=== PATIENT | male | born 1965 | race Caucasian/White ===

== ENCOUNTER 2018-03-06 08:35 | Inpatient (IN) | payer OTHER ==
--- NOTE | 2018-03-06 09:28 | ED ---
Seizure - HPI Summary HPI Summary: Patient is a 52-year-old male with a history of grand mal seizures taking carbamazepine 4 times daily presenting to the ED with . states he has been having focal seizures every 2 minutes with a rest period of about 1-1/2 minutes 3 hours ago. This has never happened. Per patient, the seizures have somewhat of a warning and has some impaired awareness which presents as knowing others are in his environment, but is unable to see them correctly or communicate in any way. His behaviors are repetitive motions including facial grimacing, gesturing, lips backing and repeating words. He also endorses some fear and is often stating "help me." After seizure activity, he is able to communicate effectively and understands that he had just had a seizure. 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 He has had these focal seizures with impaired awareness in his sleep intermittently per , but never while he is awake. He remains on the same dose of his carbamazepine which is 100 mg in the morning, 200 mg at noon, 100 mg in the evening, 300 mg at bedtime. He believes he sees Dr. Rivera but has not seen him in several years. - History Of Current Complaint Chief Complaint: EDSeizure Time Seen by Provider: 03/06/18 08:58 Hx Obtained From: Patient Onset/Duration: Sudden Onset Severity Of Seizure: Self-Limited Location Of Seizure: Focal Movement(s) Character: Partial (Specify) Aggravating Factor(s): Nothing Alleviating Factor(s): Spontaneous Resolution Associated Signs And Symptoms: Negative Related History: Medication Compliant - Risk Factors SAH Risk Factors: Negative Meningitis Risk Factors: Negative SDH Risk Factor: Male, Seizures - Allergies/Home Medications Allergies/Adverse Reactions: Allergies Allergy/AdvReac Type Severity Reaction Status Date / Time divalproex sodium Allergy Rash Verified 03/06/18 08:44 [From Depakote] phenobarbital Allergy Unknown Verified 03/06/18 08:44 Reaction Details phenytoin [From Dilantin] Allergy Unknown Verified 03/06/18 08:44 Reaction Details PMH/Surg Hx/FS Hx/Imm Hx Previously Healthy: Yes Endocrine/Hematology History: Denies: Hx Diabetes, Hx Thyroid Disease Cardiovascular History: Denies: Hx Hypertension, Hx Pacemaker/ICD Respiratory History: Denies: Hx Asthma, Hx Chronic Obstructive Pulmonary Disease (COPD) Sensory History: Denies: Hx Hearing Aid Neurological History: Reports: Hx Seizures Psychiatric History: Denies: Hx Panic Disorder - Cancer History Cancer Type, Location and Year: SKIN CA - Surgical History Surgery Procedure, Year, and Place: NO NEURO SURGERY - Immunization History Hx Pertussis Vaccination: No Immunizations Up to Date: Unable to Obtain/Confirm Infectious Disease History: Denies: Hx Hepatitis, Hx Human Immunodeficiency Virus (HIV) - Social History Occupation: Employed Full-time Lives: With Family Alcohol Use: None Hx Substance Use: No Substance Use Type: Reports: None Smoking Status (MU): Never Smoked Tobacco Review of Systems Constitutional: Negative Negative: Fever, Chills, Fatigue, Skin Diaphoresis Eyes: Negative Cardiovascular: Negative Respiratory: Negative Positive: no symptoms reported, see HPI Musculoskeletal: Negative Neurological: Other - seizure activity Psychological: Normal All Other Systems Reviewed And Are Negative: Yes Physical Exam Triage Information Reviewed: Yes Vital Signs On Initial Exam: Initial Vitals Pulse Pulse Ox 73 97 03/06/18 08:46 03/06/18 08:46 Vital Signs Reviewed: Yes Appearance: Positive: Well-Appearing - seizure activity Skin: Positive: Warm, Skin Color Reflects Adequate Perfusion Eyes: Positive: Normal, EOMI, COSMO Neck: Positive: Nontender Respiratory/Lung Sounds: Positive: Clear to Auscultation Cardiovascular: Positive: Normal Neurological: Positive: Sensory/Motor Intact, Alert, Oriented to Person Place, Time, Speech Normal, Other - seizure activity - intermittent Psychiatric: Positive: Normal, Affect/Mood Appropriate AVPU Assessment: Alert Diagnostics - Vital Signs Vital Signs Pulse BP Pulse Ox 03/06/18 08:50 180/101 03/06/18 08:46 73 97 - Laboratory Result Diagrams: 03/06/18 09:29 03/06/18 09:29 Lab Statement: Any lab studies that have been ordered have been reviewed, and results considered in the medical decision making process. Course/Dx - Course Course Of Treatment: On arrival, focal seizure with impaired awareness is visualized. Dr. Perkins called immediately for an evaluation, as this is new seizure symptoms. He is able to come to bedside immediately. EEG obtained with video. CT brain obtained. Discussed case with Dr. Levin who accepts patient to ICU. Dr. Rivera and Dr. Perkins both at bedside. Labs including carbamazepine obtained. Carbamazepine level 12.5. IV obtained. 1000 Keppra given and 4 mg Ativan given per Dr. Perkins. Labs are otherwise stable. He is accepted into the ICU. - Diagnoses Differential Diagnosis/HQI/PQRI: Positive: Known Seizure Disorder Provider Diagnoses: Status epilepticus - Physician Notifications Discussed Care of Patient With: Bernard Perkins - to see patient in the ED Instructed by Provider To: Admit As Inpatient - ICU/ Dr. Levin accepts Admit/Transition Orders Completed By ED Provider: No - Critical Care Time Critical Care Time: 30-74 min Discharge - Sign-Out/Discharge Documenting (check all that apply): Discharge/Admit/Transfer - Discharge Plan Condition: Fair Disposition: ADMITTED TO [facility] Referrals: Olivia Anguiano MD [Primary Care Provider] - - Billing Disposition and Condition Condition: FAIR Disposition: [facility] [place]
[2018-03-06 09:41] LABS: ABS Basophils 0.1 10^3/ul (0-0.2); ABS Eosinophils 0.4 10^3/ul (0-0.6); ABS Monocytes 0.5 10^3/ul (0-0.8); ABS Neutrophils 3.6 10^3/ul (1.5-7.7); ABS Nucleated RBC 0 10^3/ul; Eosinophil % 6.2 % (0-6); Hematocrit 39 % (42-52); Lymphocyte % 30.3 % (25-47); Mean Corpuscular HGB Conc 36 g/dl (31-36); Mean Corpuscular Hemoglobin 32 pg (27-31); Mean Corpuscular Volume 90 fL (80-94); Mean Platelet Volume 7.1 um3 (7.4-10.4); Nucleated Red Blood Cells % 0; Platelet Count 172 10^3/ul (150-450); Red Blood Count 4.36 10^6/ul (4.0-5.4); Red Cell Distribution Width 14 % (10.5-15); White Blood Count 6.7 10^3/ul (3.5-10.8)
[2018-03-06] MEDS ORDERED: LORazepam INJ* 2 MG/ML 1 ML VIAL IV PUSH ONE ×2 (09:44→09:55)
[2018-03-06] MEDS ORDERED: levETIRAcetam IV* 1,000 MG in NS 0.9% 100 ML* 100 ML IVPB ONE (09:55)
[2018-03-06] MEDS ORDERED: LORazepam INJ* 2 MG/ML 1 ML VIAL ONE (09:56)
[2018-03-06 10:02] LABS: EGFR Non-African American 82.9 (>60)
[2018-03-06 11:08] LABS: Urine Appearance Clear; Urine Blood Negative (Negative); Urine Color Yellow; Urine Ketones Negative (Negative); Urine Protein Negative (Negative); Urine Urobilinogen Negative (Negative)
--- NOTE | 2018-03-06 11:49 | RAD ---
INDICATION: Seizure activity COMPARISON: Similar CT of the brain February 05, 2014 TECHNIQUE: Contiguous axial sections of the brain were obtained from the skull base to the vertex without contrast. FINDINGS: The ventricles, cisterns and sulci are within normal limits. There is stable encephalomalacia involving the right frontal lobe not significant change since the previous CT of the brain. Elsewhere the mancia-white matter differentiation is adequately maintained and there is no sulcal effacement. No significant focal abnormality or mass effect is present. There is no evidence for intracranial hemorrhage. No significant focal osseous abnormality is present. There is mild mucosal thickening of the bilateral ethmoid air cells. The mastoid air cells are well aerated bilaterally. IMPRESSION: 1. Stable encephalomalacia involving the right frontal lobe not significant change since the sixth 1913 CT examination. 2. Mild paranasal sinus mucosal disease.
[2018-03-06] MEDS ORDERED: Temazepam CAP* 15 MG PO PRN ×2 (12:13→12:50)
--- NOTE | 2018-03-06 12:46 | HP ---
H&P (Free Text) History and Physical: History and Physical - Critical Care Limitations in history/physical: post benzodiazepine, sedated HPI: 52y M w/pmhx of epilepsy on carbamezapine; comes to ER with , brought in for abnormal facial movements. She states he gets facial grimacing movements at nighttime. But today for 3 hours he was having more facial and extremity movements intermittently. In ER had frequent facial grimacing, lip smacking as documented by ER and neurology. Neuro consult called and this was suspected to be on going partial status epilepticus of partialseizures. Carbamezapine dosing checked, compliant but has not seen neurologist for years. Level was 12. Given keppra 1000mg loading. Ativan IV push for seizure. He is now in ICU, sedated, arousable. HR 50s, BP 160s, sats mid 90s. at bedside. ROS: unable to obtain due to mental status change/sedated PMHx: epilepsy PSHx: none Family History: none significant Social History: Alcohol-none, Smoking-none, Drug use-none; Job-employed; family- Allergies: Allergies Allergy/AdvReac Type Severity Reaction Status Date / Time divalproex sodium Allergy Rash Verified 03/06/18 08:44 [From Depakote] phenobarbital Allergy Unknown Verified 03/06/18 08:44 Reaction Details phenytoin [From Dilantin] Allergy Unknown Verified 03/06/18 08:44 Reaction Details Home Medications: Polyethylene Glycol 3350* [Miralax*] 17 gm PO DAILY PRN 07/19/16 [History Confirmed 03/06/18] carBAMazepine TAB(*) [TEGretol TAB(*)] 200 mg PO .NOON 08/30/16 [History Confirmed 03/06/18] clonazePAM TAB(*) [KlonoPIN TAB(*)] 2 mg PO BEDTIME 08/30/16 [History Confirmed 03/06/18] Nicotine PATCH 14 MG/24 HR* 14 mg TRANSDERM DAILY 09/03/16 [History Confirmed ] Omeprazole CAP* [Prilosec CAP* 20 MG] 40 mg PO DAILY 03/06/18 [History Confirmed 03/06/18] Ranitidine TAB (NF) [Zantac TAB (NF)] 150 - 300 mg PO DAILY 03/06/18 [History Confirmed 03/06/18] Temazepam CAP* [Restoril CAP*] 15 - 30 mg PO BEDTIME 03/06/18 [History Confirmed 03/06/18] carBAMazepine TAB(*) [TEGretol TAB(*)] 100 mg PO .QAM AND 1800 03/06/18 [ History Confirmed 03/06/18] carBAMazepine TAB(*) [TEGretol TAB(*)] 300 mg PO BEDTIME 03/06/18 [History Confirmed 03/06/18] Tele: sinus simone Vitals: Vital Signs Temp 97.8 F 03/06/18 10:42 Pulse 51 03/06/18 12:15 Resp 14 03/06/18 12:15 BP 120/71 03/06/18 12:15 Pulse Ox 95 03/06/18 12:15 Intake & Output 03/05/18 03/06/18 03/06/18 18:59 06:59 18:59 Intake Total 110 Balance 110 Weight 126 lb 1.671 oz Intake: IV Fluids 110 O2/Vent: RA Infusions: heplock Current Medications: Carbamazepine (Tegretol Tab(*)) 100 mg PO .QAM AND 1800 PAULA Carbamazepine (Tegretol Tab(*)) 200 mg PO 1200 PAULA Carbamazepine (Tegretol Tab(*)) 300 mg PO BEDTIME PAULA Levetiracetam (Keppra Iv Premix*) 500 mg in 100 mls @ 400 mls/hr IV Q12H PAULA Omeprazole (Prilosec Cap*) 40 mg PO DAILY PAULA Temazepam (Restoril Cap*) 15 - 30 mg PO BEDTIME PRN PRN Reason: INSOMNIA Stop: 03/11/18 12:12 Physical Exam: General: sedated, barely arousable, comfortable, breathing, no distress Head: normocephalic, atraumatic HEENT: no pallor, no icterus, moist mucous membranes Neck: soft, supple, no jvd, no stridor CVS: simone, regular, no murmur Resp: bilateral air entry, no rhales, no wheeze, no rhonchi, no acc muscle use Abdomen: soft, nontender, nondistended, bowel sounds present Ext: pulses+, warm, no edema Skin: intact, no breakdown, no dryness Neuro: sedated, pupils reactive, no apparent seizure noted. limited exam due to sedation. Labs: Laboratory Results - last 24 hr 03/06/18 03/06/18 03/06/18 09:29 09:29 09:30 WBC 6.7 RBC 4.36 Hgb 14.0 Hct 39 L MCV 90 MCH 32 H MCHC 36 RDW 14 Plt Count 172 MPV 7.1 L Neut % (Auto) 54.5 Lymph % (Auto) 30.3 [place] % (Auto) 8.0 H Eos % (Auto) 6.2 H Baso % (Auto) 1.0 Absolute Neuts (auto) 3.6 Absolute Lymphs (auto) 2.0 Absolute Monos (auto) 0.5 Absolute Eos (auto) 0.4 Absolute Basos (auto) 0.1 Absolute Nucleated RBC 0 Nucleated RBC % 0 Sodium 139 Potassium 3.9 Chloride 103 Carbon Dioxide 29 Anion Gap 7 BUN 10 Creatinine 0.95 Est GFR ( Amer) 106.7 Est GFR (Non-Af Amer) 82.9 BUN/Creatinine Ratio 10.5 Glucose 93 Lactic Acid 1.4 Calcium 9.4 Magnesium 2.0 Total Bilirubin 0.40 AST 24 ALT 19 Alkaline Phosphatase 143 H Total Protein 7.7 Albumin 4.5 Globulin 3.2 Albumin/Globulin Ratio 1.4 Urine Color Urine Appearance Urine pH Ur Specific Fifield Urine Protein Urine Ketones Urine Blood Urine Nitrate Urine Bilirubin Urine Urobilinogen Ur Leukocyte Esterase Urine Glucose Carbamazepine 12.5 H 03/06/18 10:50 WBC RBC Hgb Hct MCV MCH MCHC RDW Plt Count MPV Neut % (Auto) Lymph % (Auto) [place] % (Auto) Eos % (Auto) Baso % (Auto) Absolute Neuts (auto) Absolute Lymphs (auto) Absolute Monos (auto) Absolute Eos (auto) Absolute Basos (auto) Absolute Nucleated RBC Nucleated RBC % Sodium Potassium Chloride Carbon Dioxide Anion Gap BUN Creatinine Est GFR ( Amer) Est GFR (Non-Af Amer) BUN/Creatinine Ratio Glucose Lactic Acid Calcium Magnesium Total Bilirubin AST ALT Alkaline Phosphatase Total Protein Albumin Globulin Albumin/Globulin Ratio Urine Color Yellow Urine Appearance Clear Urine pH 7.0 Ur Specific Fifield 1.010 Urine Protein Negative Urine Ketones Negative Urine Blood Negative Urine Nitrate Negative Urine Bilirubin Negative Urine Urobilinogen Negative Ur Leukocyte Esterase Negative Urine Glucose Negative Carbamazepine Imaging: CT brain 03/06 - encephalomalacia right frontal lobe noted, no acute findings Assessment: 52y M w/pmhx of epilepsy on carbamezapine; comes to ER with , brought in for abnormal facial movements. She states he gets facial grimacing movements at nighttime. But today for 3 hours he was having more facial and extremity movements intermittently. In ER had frequent facial grimacing, lip smacking as documented by ER and neurology. Neuro consult called and this was suspected to be on going partial status epilepticus of partialseizures. Carbamezapine dosing checked, compliant but has not seen neurologist for years. Level was 12. Given keppra 1000mg loading. Ativan IV push for seizure. New onset Partial Seizures h/o epilepsy Plan: -New onset partial seizures, CT brain negative, neurochecks q1h, EEG with video monitoring -neuro consult called -Cont carbamezapine home dosing -cont keppra 500mg iv q12h -airway monitoring and end-tidal monitoring while sedated, continuous -asp prec, HOB elevated -IVF as needed -sinus simone, no hemodyn compromise, will cont to monitor, not on BB/CCB -no signs of infectious etiology or source noted discussed with at bedside DVT prophylaxis: no GI prophylaxis: ppi Central Line: no Arterial Line: no Bang Cathetor: no Disposition: ICU for monitoring Code Status: full code Total Critical care time 35 min, not including procedures/teaching Yasmani Levin MD Charter Representative (Electronically Signed)
[2018-03-06] MEDS: carBAMazepine TAB(*) 200 MG PO SCH ×4 (14:45→22:29)
[2018-03-06] MEDS ORDERED: levETIRAcetam 500 MG IVPREMIX* 500 MG/100 ML BAG IV SCH (18:00)
[2018-03-06] MEDS ORDERED: levETIRAcetam IV* 250 MG in NS 0.9% 100 ML* 100 ML IVPB ONE (18:17)
--- NOTE | 2018-03-07 01:40 | CONS ---
NEUROLOGICAL CONSULTATION: DATE OF CONSULT: 03/06/18 HISTORY OF PRESENT ILLNESS: This is a 52-year-old man who I was asked to evaluate for his seizures. His history is limited in his chart, but per the patient, he has had seizures since childhood, but no seizures for the past couple of years' time, and he has been maintained on Tegretol through his primary, Dr. Olivia Anguiano. He has been on Dilantin and Depakote with apparent rashes and phenobarbital made him too drowsy. It does not appear that he has been on any other medications. He has no active neurologist. He identifies Dr. Rivera as his neurologist. He was going to see him 3 years ago but apparently that appointment was never kept. He may have seen Dr. Rivera further ago than that. 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 His history today is that his noted beginning at 6:30 he was having frequent episodes of agitation and confusion with some stereotypical thrashing that lasted for a couple of minutes and then he would become alert, awake, and oriented. She brought him in to the emergency room where he was having these episodes and I was called at about 9:15. I came shortly after and witnessed an episode and immediately got an EEG, which showed some right frontal sharp waves with some fast activity followed by slow activity that seems to be associated with his clinical events. Potential diagnosis of frontal lobe status is made and he received first 2 mg of Ativan which did not help, then another 2 mg which dramatically slowed his episodes down and he got loaded with Keppra 1000 mg and has had no further episodes since then. He was sleeping this afternoon when I reevaluated him, but he awoke easily and was conversant. He has missed none of his Tegretol and he has not been sick recently. MEDICATIONS: Of note, he was recently begun on cetirizine this past Friday for allergies. Other medicines have been unchanged and included: 1. Tegretol which is listed as 100 in the morning, 200 at noon, 100 at 6, and 300 at night. 2. Klonopin 2 mg at bedtime. 3. Zantac 150 to 300 daily 4.. Omeprazole 40 mg daily. SOCIAL HISTORY: He does not smoke, drink, or use drugs. 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 He lives with his . REVIEW OF SYSTEMS: As best I can tell from his history and his , has been negative. PHYSICAL EXAM: Temperature 98.4, pulse 47, respirations 13, blood pressure 129/ 80. I witnessed several episodes of agitation. He could still speak but in a confused way. He had facial grimacing and reddening of his face. He can move all extremities with this but in an agitated way and each episode looked similar. As I said before, he is now arousable with intact cranial nerves II through XII, normal. Fundi were not well seen. Motor exam revealed normal tone and strength throughout. Chest: Clear. Cardiovascular: Regular rate and rhythm. Abdomen is soft with positive bowel sounds. He has multiple cafe au lait spots including axillary freckling. DIAGNOSTIC STUDIES/LAB DATA: I reviewed his MRI scan from [address] scan, which showed right frontal encephalomalacia. He had WBC of 6.7, hematocrit of 39, platelets of 172. Normal CMP other than alk phos of 143. UA was negative. His Tegretol level was 12.5. He said he took an extra dose this morning because of his concern he had for possible seizures. ASSESSMENT AND PLAN: Bernard presented with extremely frequent almost continuous frontal lobe seizures. They are broken with Ativan and Keppra. For now, we will keep him on Keppra, ask Dr. Deluna to increase his Keppra dose to 750 twice a day as well as continue his maintenance Tegretol. Of note, his says that he is wynn at times and has seasonal affective disorder, although he has never been diagnosed with depression. Dr. Kimbrough is coming interpersonal communications professor. I defer to her what his long-term antiseizure medication will be. I will be glad to see him in followup as an outpatient unless Dr. Rivera wants to follow him up. Dr. Rivera has not really been following him as an outpatient but has been identified by the patient as his neurologist. He is being monitored on video EEG to make sure he is not having subclinical events that would need changes in his treatment. Thank you for sharing his case. [id number]/[facility] #: [id number] [facility] CENTERAmbrocio
[2018-03-07] MEDS: levETIRAcetam IV* 750 MG in NS 0.9% 100 ML* 100 ML IVPB SCH ×2 (05:45→17:58)
[2018-03-07] MEDS: carBAMazepine TAB(*) 200 MG PO SCH ×4 (09:10→20:12)
[2018-03-07] MEDS: Omeprazole CAP* 20 MG PO SCH (09:11)
--- NOTE | 2018-03-07 10:43 | PN ---
Progress Note - Progress Note Date of Service: 03/07/18 Note: Progress Note - Critical Care 24 hour events: -more awake today, overnight no further seizures clinically noted -no headache, n/v. speaks clearly, no apparent abnormal movements noted -EEG video monitoring ongoing Tele: sinus simone Vitals: Vital Signs Temp 99.1 F 03/07/18 08:00 Pulse 53 03/07/18 10:01 Resp 12 03/07/18 00:00 BP 146/81 03/07/18 10:01 Pulse Ox 93 03/07/18 10:01 Intake & Output 03/06/18 03/07/18 03/07/18 18:59 06:59 18:59 Intake Total 170 270 Output Total 125 300 Balance 45 -30 Weight 126 lb 1.671 oz Intake: IV Fluids 110 60 keppra 60 IVPB 210 keppra 210 Oral 60 Output: Urine 125 300 Other: # Bowel Movements 0 O2/Vent: RA Infusions: heplock Current Medications: Carbamazepine (Tegretol Tab(*)) 100 mg PO 0800,1800 [facility] Last Admin: 03/07/18 09:10 Dose: 100 mg Carbamazepine (Tegretol Tab(*)) 200 mg PO 1200 [facility] Last Admin: 03/06/18 14:45 Dose: Not Given Carbamazepine (Tegretol Tab(*)) 300 mg PO BEDTIME [facility] Last Admin: 03/06/18 22:29 Dose: 300 mg Levetiracetam 750 mg/ Sodium (Chloride) 107.5 mls @ 440 mls/hr IVPB Q12H [facility] Last Admin: 03/07/18 05:45 Dose: 440 mls/hr Omeprazole (Prilosec Cap*) 40 mg PO DAILY [facility] Last Admin: 03/07/18 09:11 Dose: 40 mg Temazepam (Restoril Cap*) 15 mg PO BEDTIME PRN PRN Reason: INSOMNIA Stop: 03/11/18 12:12 Temazepam (Restoril Cap*) 15 mg PO BEDTIME PRN PRN Reason: IF 15MG ISN'T ENOUGH Physical Exam: General: awake, alert, no distress Head: normocephalic, atraumatic HEENT: no pallor, no icterus, moist mucous membranes Neck: soft, supple, no jvd, no stridor CVS: simone, regular, no murmur Resp: bilateral air entry, no rhales, no wheeze, no rhonchi, no acc muscle use Abdomen: soft, nontender, nondistended, bowel sounds present Ext: pulses+, warm, no edema Skin: intact, no breakdown, no dryness Neuro: awake, alert, moving all ext 5/5 strength, pupilrs reactive, no abnormal movements noted Labs: Laboratory Results - last 24 hr 03/06/18 03/06/18 10:50 13:55 Patient Temperature Not Reportable ABG pH 7.37 ABG pH (Temp Correct) Not Reportable ABG pCO2 49 H ABG pCO2 (Temp Corrct Not Reportable ABG pO2 79 L ABG pO2 (Temp Correct Not Reportable ABG HCO3 26.6 ABG O2 Saturation 97.6 ABG Base Excess 2.2 H Respiration Rate Not Reportable Ventilator Type Not Reportable Vent Mode Not Reportable FiO2 21 Inspiratory Time Not Reportable PEEP Not Reportable Pressure Support Not Reportable Pressure Control Not Reportable EPAP Not Reportable IPAP Not Reportable BiPAP Not Reportable Urine Color Yellow Urine Appearance Clear Urine pH 7.0 Ur Specific Mabel 1.010 Urine Protein Negative Urine Ketones Negative Urine Blood Negative Urine Nitrate Negative Urine Bilirubin Negative Urine Urobilinogen Negative Ur Leukocyte Esterase Negative Urine Glucose Negative Imaging: CT brain 03/06 - encephalomalacia right frontal lobe noted, no acute findings Assessment: 52y M w/pmhx of epilepsy on carbamezapine, neurofibromatosis; comes to ER with , brought in for abnormal facial movements. She states he gets facial grimacing movements at nighttime. But today for 3 hours he was having more facial and extremity movements intermittently. In ER had frequent facial grimacing, lip smacking as documented by ER and neurology. Neuro consult called and this was suspected to be on going partial status epilepticus of partialseizures. Carbamezapine dosing checked, compliant but has not seen neurologist for years. Level was 12. Given keppra 1000mg loading. Ativan IV push for seizure. New onset Partial Seizures h/o epilepsy Plan: -New onset partial seizures; seems controlled now, cont carbamezapine/keppra -CT brain negative, neurochecks q1h, EEG with video monitoring -neurology following -followup EEG results -Cont carbamezapine home dosing -cont keppra 750mg iv q12h -awake, alert now; ativan prn if seizures; can d/c end-tidal monitoring -asp prec, HOB elevated -IVF as needed -oob to chair -PO regular diet -sinus simone, no hemodyn compromise, will cont to monitor, not on BB/CCB -no signs of infectious etiology or source noted discussed with at bedside DVT prophylaxis: no GI prophylaxis: ppi Central Line: no Arterial Line: no Bang Cathetor: no Disposition: ICU for monitoring Code Status: full code Yasmani Levin MD [employer] Center Assistant (Electronically Signed)
[2018-03-07] MEDS ORDERED: Gadoteridol* (CONTRAST) 279.3 MG/ML 10 ML IV ONE (17:08)
--- NOTE | 2018-03-07 18:38 | RAD ---
HISTORY: Acute repetitive seizures, history of neurofibromatosis and traumatic brain injury COMPARISONS: April 07, 2014 TECHNIQUE: The following sequences were obtained of the head: Sagittal T1-weighted images, axial T2-weighted images, axial FLAIR images, axial susceptibility weighted images, axial T1-weighted images, coronal T1, T2 and FLAIR images through the mesial temporal lobes. Additionally, axial diffusion-weighted images were obtained with calculated apparent diffusion coefficients. Additionally, sagittal and axial T1 weighted images with thin section coronal T1-weighted images through the mesial temporal lobes were obtained after contrast enhancement with a gadolinium-based intravenous contrast agent. FINDINGS: HEMORRHAGE/INFARCT: There is no hemorrhage or acute infarct. MASSES/SHIFT: There is no mass or shift. EXTRA-AXIAL SPACES/MENINGES: There are no extra-axial fluid collections. SULCI AND VENTRICLES: The sulci and ventricles are normal in size and position for the patient's stated age. CEREBRUM: There is stable bifrontal encephalomalacia and encephalomalacia of the anterior temporal lobe with a history of previous traumatic brain injury. There is no abnormal enhancement. The mesial temporal lobes are symmetric. BRAINSTEM: There are no focal parenchymal abnormalities. CEREBELLUM: There are no focal parenchymal abnormalities. The cerebellar tonsils are normal in size and position. SELLA: The sella is normal. PINEAL: The pineal region is clear. CP ANGLE/TEMPORAL BONES: The labyrinthine structures are grossly normal. VESSELS: Normal flow-voids are noted within the visualized vertebral vasculature. DIFFUSION ABNORMALITIES: There are no diffusion abnormalities. PARANASAL SINUSES/MASTOIDS: There is mucosal thickening of ethmoid air cells and maxillary sinuses. ORBITS: The orbits are unremarkable. BONES AND SOFT TISSUE: No bone or soft tissue abnormalities are noted. OTHER: There is no abnormal enhancement. IMPRESSION: 1. THERE IS STABLE ENCEPHALOMALACIA OF THE INFERIOR FRONTAL LOBES BILATERALLY AND RIGHT ANTERIOR TEMPORAL LOBE CONSISTENT WITH THE HISTORY OF TRAUMATIC BRAIN INJURY. 2. THE MESIAL TEMPORAL LOBES ARE SYMMETRIC. 3. THERE IS NO ABNORMAL ENHANCEMENT OR SPACE-OCCUPYING LESION
[2018-03-07] MEDS ORDERED: Mouth Piece, Nicotine* 1 EACH CARTRIDGE INH PRN (19:46)
[2018-03-07] MEDS: Nicotine Inhaler* 10 MG AMP INH PRN (20:12)
--- NOTE | 2018-03-07 21:44 | EEG ---
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 These seizures were similar to his nocturnal events, consisting of agitated behavior, vocalizations, repetitive phrases, abnormal breathing, bringing his hand to his forehead, but had never occurred during the daytime and had never occurred as frequently as they did on the day of admission. They were also "stronger" than his historical seizures, per his . He had recently started taking Xyzal about 4 to 5 days before this. After routine EEG documented acute, repetitive seizures associated with a diffuse beta pattern on EEG, long-term video EEG was requested to assess for subclinical seizure activity and to follow treatment response. Introduction: INTRODUCTION: The EEG was monitored from 21 scalp electrodes. Nineteen electrodes consisted of the standard parasagittal, temporal and midline leads of the International 10 -20 system. In addition, special electrodes T1 and T2 were placed. EEG data were recorded on an RealtimeBoard system with simultaneous MPEG-4 digital video recording of patient behavior. EEG recording was in a monopolar montage with all electrodes referenced to FCz. Significant behavioral events were signaled by an event button, or putative electrical seizure events were detected by a computer program. All EEG data were reviewed in their entirety on a monitor with reconstruction of montages and adjustments of sensitivity and filtering. Simultaneous patient behavior was viewed on an adjacent monitor and correlated with the EEG. - Medications Active Medications: Carbamazepine (Tegretol Tab(*)) 100 mg PO 0800,1800 [facility] Last Admin: 03/07/18 17:57 Dose: 100 mg Carbamazepine (Tegretol Tab(*)) 200 mg PO 1200 [facility] Last Admin: 03/07/18 12:08 Dose: 200 mg Carbamazepine (Tegretol Tab(*)) 300 mg PO BEDTIME [facility] Last Admin: 03/07/18 20:12 Dose: 300 mg Device (Nicotine Mouth Piece*) 1 each INH .USE WITH NICOTROL PRN PRN Reason: CRAVING Levetiracetam 750 mg/ Sodium (Chloride) 107.5 mls @ 440 mls/hr IVPB Q12H [facility] Last Admin: 03/07/18 17:58 Dose: 440 mls/hr Nicotine (Nicotine Inhaler*) 10 mg INH Q2H PRN PRN Reason: CRAVING Last Admin: 03/07/18 20:12 Dose: 10 mg Omeprazole (Prilosec Cap*) 40 mg PO DAILY [facility] Last Admin: 03/07/18 09:11 Dose: 40 mg Temazepam (Restoril Cap*) 15 mg PO BEDTIME PRN PRN Reason: INSOMNIA Stop: 03/11/18 12:12 Temazepam (Restoril Cap*) 15 mg PO BEDTIME PRN PRN Reason: IF 15MG ISN'T ENOUGH - Description Background: The waking background showed appropriate organization with clearly defined anterior-posterior voltage and frequency gradients. There was a defined posterior dominant rhythm of 7-8 Hertz, which was symmetrical and showed normal reactivity. Anteriorly, there was the expected pattern of lower voltage and more irregular theta and beta rhythms. There was excess theta intermixed within the background as well as areas of more focal slowing, as described below. The sleep background was appropriately organized with well-developed spindles and vertex waves indicative of stage 2 sleep. These sleep transients showed appropriate morphology and were bilaterally synchronous and symmetrical. Development of diffuse delta range frequencies with dropout of stage 2 architecture accompanied transition to slow wave sleep, and a lower voltage mixed frequency pattern associated with eye movements was consistent with REM sleep. During sleep, there was increased density of epileptiform activity and discharges were of higher amplitude, as described below. When the patient was awake, there were frequent periods of waxing and waning, rhythmic 3 to 4 Hz slowing in the midline and posterior regions bilaterally, left greater than right. This would last tens of seconds at a time, and sometimes was associated with ictal patterns. At other times, it appeared without any clear evolution in frequency or spatial distribution. In addition, there were other areas of frequent, polymorphic slowing. Most often, delta slowing was noted in the right parietal region, maximal at T6 and P4. There was also frequent slowing in the right frontotemporal region, maximal at T2 and F8, often in the range of 2 to 3 Hz. This was semi-rhythmic at times, lasting a few seconds. Polymorphic delta slowing was also noted in the left temporoparietal region, maximal at T5 and P3. Intericatal Epileptiform Activity: There were frequent, multifocal epileptiform discharges. The most frequent population was noted at T6 and P4 and were often high voltage, especially during sleep. These occurred every few pages. Independent discharges were also noted in the homologous region in the left hemisphere, though were not seen as frequently and were not as high voltage. In the right frontal region. low voltage spikes with aftergoing slow waves were noted at FP2 and into the right frontotemporal region, occurring at about 3 Hz for 2 to 3 seconds. Finally, sharp waves were sometimes seen maximally at PZ, P3 and P4, during sleep. Discharges were higher in voltage during sleep and more frequent. Ictal Activity: The patient experienced frequent seizures during this recording. At their most frequent, these occurred every 2 to 4 minutes. Electrographically, the seizures varied somewhat in their characteristics but generally began with an arousal out of sleep followed by fast frequency activity diffusely in the range of 12 to 15 Hz. After 10 seconds or so, the activity slowed to around 9 Hz and was most prominently represented in the frontocentral regions. After another 10 to 20 seconds, this activity would then often develop into rhythmic 4 to 5 Hz activity. Sometimes, there was a clear termination to the ictal activity while other times it gradually blended into the background as the patient fell back to sleep. In many cases, the ictal pattern was not as clearly defined, but the patient's behavior was consistent with his typical seizure activity. Clinically , the patient arose from sleep most often, moved around in an agitated way appearing uncomfortable, looked around, often lifted his head off the pillow repeatedly and sometimes sat all the way up in bed, often repeated "oh wait" or "help", brought his left hand to his forehead and sometimes regarded his right hand. When the seizures occurred while he was awake, he again exhibited agitated movements, vocalized non-specifically or said "help", "let me get up" or "wait" but was sometimes able to answer questions during a seizure. Less common characteristics of the seizure could include flapping movements of the right hand and strange posturing of the right hand. - Impression Impression: This is an abnormal long-term monitoring session. The patient experienced numerous seizures which electrographically were diffuse in representation and began with a beta pattern which was maximally represented over the midline and central regions. Clinically, they had a frontal semiology with prominent agitation, stereotyped utterances including "help" and "wait" and the majority of these occurred out of sleep, though not exclusively. The interictal record is notable for multifocal slowing and discharges, with the most frequent discharges noted over the right hemisphere in the parietal region with other discharges in the right frontal region, left temporoparietal region and others in the posterior midline. The background otherwise demonstrated a slightly slow PDR, but otherwise showed good organization. Overall these findings are consistent with continued acute repetitive seizures, likely with frontal lobe onset but not well-localized or lateralized on this recording, in the setting of multifocal increased epileptic potential and a mild, non-specific encephalopathy.
--- NOTE | 2018-03-07 22:27 | PN ---
FOLLOWUP NOTE: DATE OF FOLLOWUP: 03/07/18 LOCATION: The patient is in the ICU. HISTORY: I discussed the patient's history of seizures with him and his . His reports that historically he has nocturnal seizures, which are very similar to what he was experiencing yesterday. However, she does not typically see these seizures during the day and they seemed more severe than what she typically sees at night. She confirms that he will wake up out of sleep and will often yell out with what sounds to be a sustained tonic cry by her description and then he will become stiff and sometimes have some shaking and some agitated movements. Afterwards, he will often get up and use the restroom. She does not keep any formal track of these episodes since they are just a part of their lives. She estimates that the last one happened within the last couple of weeks. He takes carbamazepine for his seizure disorder and has not changed the dose recently. He denies any recent illnesses. The only change has been the initiation of Xyzal as an outpatient, which was 4 days prior to the onset of these seizures. His long-term monitoring has been notable for multiple recurrent seizures overnight, which do not have a clear localization, but by semiology appear to be frontal in nature. He will often have an arousal out of sleep and exhibit nonspecific agitated movements, will often repetitively say help or wait and sometimes has some coughing as well. With bigger seizures, he rocks back and forth and repeatedly lifts head off the pillow. With respect to his medications , he got 1 g of Keppra yesterday in the emergency department and then received 500 mg yesterday evening at approximately 1754, then 250 mg at 2027 and a dose of 750 mg this morning at 5:45. MEDICATIONS: 1. Carbamazepine 100 mg at 8 a.m. and 1800, 200 mg at 1200, and 300 mg at bedtime. 2. Levetiracetam 750 mg twice daily. 3. Omeprazole 40 mg daily. 4. Temazepam 15 mg at bedtime p.r.n., as well as an additional 15 mg as needed if the first dose is not adequate. PHYSICAL EXAMINATION: Vital Signs: Temperature 98.5, blood pressure 142/84, heart rate 62, oxygen saturation 95% on room air. On general examination, he was seated in the chair at his bedside, in no acute distress. Heart was in a regular rate and rhythm with no murmurs, rubs, or gallops. Lungs were clear to auscultation bilaterally. He had some superficial scratches over his left ventral forearm. He has a painful plantar wart on the sole of his right foot. He has freckling over his upper extremities. On neurologic exam, he was fully awake, alert and oriented, though initially stated the date to be 03/08/18. He stated the day of the week to be Friday. His speech is a little slow, but no chris dysarthria or aphasia. Pupils were equal, round, and reactive from 4 to 2 mm bilaterally. Versions are full without sustained nystagmus. López are full to confrontation. Facial sensation and musculature is full and symmetric. Palate elevates symmetrically and the tongue is midline. Hearing is intact to voice. On motor examination, he has normal bulk and tone in the upper and lower extremities. Strength is full proximally and distally with no pronator drift. Sensation is intact to light touch in the upper and lower extremities. Reflexes were 2+ throughout with mute toes. I did not ambulate him. DIAGNOSTIC STUDIES/LAB DATA: His laboratory data including CBC and chemistry panel were reviewed and overall unremarkable aside from an alkaline phosphatase of 143. Urinalysis negative for infection. Carbamazepine level at 9:30 in the morning was 12.5. I reviewed his brain CT, which shows bifrontal encephalomalacia, which is a bit worse on the right and apparently is unchanged from previous scan. IMPRESSION: Bernard Isaacs is a 52-year-old man with a reported history of neurofibromatosis as well as bifrontal traumatic brain injury, who presented with acute repetitive seizures with frontal lobe semiology. It sounds like he has a history of these seizures, but their frequency was greatly increased and they were occurring diurnally rather than just nocturnally. It is difficult to get an idea of what his true baseline seizure frequency nocturnally is, though I suspect he probably has frequent seizures. It has been suspected that the Xyzal may have lowered his seizure threshold and this is a possibility, but I would like to obtain MRI scan of the brain with and without contrast given his history of neurofibromatosis to ensure that there is not a tumor responsible for this increased seizure frequency. He does not appear clinically to have any infectious process at this point. He has been started on levetiracetam and though he did have numerous seizures overnight things appeared to have calmed down this morning and so we will continue the current dose of 750 mg twice daily with the possibility of increasing that further if seizure frequency picks back up again. I reviewed the semiology of his seizures with his as well as with his nurse and asked for them to press the event button, especially overnight should any of these events occur. He will need to be taken off the video EEG for the MRI scan and I am going to call the neuroradiologist to see if we can get this performed today. We will hook him back up after the MRI scan is completed. [id number]/[facility] #: [id number] MTDD
[2018-03-08] MEDS ORDERED: LORazepam INJ* 2 MG/ML 1 ML VIAL IV ONE (05:38)
[2018-03-08] MEDS ORDERED: LORazepam INJ* 2 MG/ML 1 ML VIAL ONE (05:39)
[2018-03-08] MEDS: levETIRAcetam IV* 750 MG in NS 0.9% 100 ML* 100 ML IVPB SCH (05:51)
[2018-03-08] MEDS: carBAMazepine TAB(*) 200 MG PO SCH ×2 (08:04→11:47)
[2018-03-08] MEDS: Omeprazole CAP* 20 MG PO SCH (08:04)
--- NOTE | 2018-03-08 09:53 | PN ---
Progress Note - Progress Note Date of Service: 03/08/18 Note: Progress Note - Critical Care 24 hour events: -awake, no sig events noted overnight it seems -afebrile Tele: sinus simone Vitals: Vital Signs Temp 97.8 F 03/08/18 07:29 Pulse 51 03/08/18 09:00 Resp 14 03/08/18 09:00 BP 135/79 03/08/18 09:00 Pulse Ox 94 03/08/18 09:00 Intake & Output 03/07/18 03/08/18 03/08/18 18:59 06:59 18:59 Intake Total 270 539.7 Output Total 300 100 Balance -30 439.7 Weight 126 lb 1.671 oz 121 lb 14.65 oz Intake: IV Fluids 9.7 NS (0.9%) 9.7 IVPB 250 80 keppra 250 80 Oral 20 450 Output: Urine 300 100 Other: Estimated Void Medium Medium # Bowel Movements 1 1 Estimated Stool Amount Medium Small # Voids 1 1 O2/Vent: RA Infusions: heplock Current Medications: Carbamazepine (Tegretol Tab(*)) 100 mg PO 0800,1800 [facility] Last Admin: 03/08/18 08:04 Dose: 100 mg Carbamazepine (Tegretol Tab(*)) 200 mg PO 1200 [facility] Last Admin: 03/07/18 12:08 Dose: 200 mg Carbamazepine (Tegretol Tab(*)) 300 mg PO BEDTIME [facility] Last Admin: 03/07/18 20:12 Dose: 300 mg Device (Nicotine Mouth Piece*) 1 each INH .USE WITH NICOTROL PRN PRN Reason: CRAVING Levetiracetam 750 mg/ Sodium (Chloride) 107.5 mls @ 440 mls/hr IVPB Q12H [facility] Last Admin: 03/08/18 05:51 Dose: 440 mls/hr Nicotine (Nicotine Inhaler*) 10 mg INH Q2H PRN PRN Reason: CRAVING Last Admin: 03/07/18 20:12 Dose: 10 mg Omeprazole (Prilosec Cap*) 40 mg PO DAILY [facility] Last Admin: 03/08/18 08:04 Dose: 40 mg Temazepam (Restoril Cap*) 15 mg PO BEDTIME PRN PRN Reason: INSOMNIA Stop: 03/11/18 12:12 Last Admin: 03/08/18 02:26 Dose: 15 mg Temazepam (Restoril Cap*) 15 mg PO BEDTIME PRN PRN Reason: IF 15MG ISN'T ENOUGH Physical Exam: General: awake, alert, no distress Head: normocephalic, atraumatic HEENT: no pallor, no icterus, moist mucous membranes Neck: soft, supple, no jvd, no stridor CVS: simone, regular, no murmur Resp: bilateral air entry, no rhales, no wheeze, no rhonchi, no acc muscle use Abdomen: soft, nontender, nondistended, bowel sounds present Ext: pulses+, warm, no edema Skin: intact, no breakdown, no dryness Neuro: awake, alert, moving all ext 5/5 strength, pupilrs reactive, no abnormal movements noted Labs: Imaging: CT brain 03/06 - encephalomalacia right frontal lobe noted, no acute findings Assessment: 52y M w/pmhx of epilepsy on carbamezapine, neurofibromatosis; comes to ER with , brought in for abnormal facial movements. She states he gets facial grimacing movements at nighttime. But today for 3 hours he was having more facial and extremity movements intermittently. In ER had frequent facial grimacing, lip smacking as documented by ER and neurology. Neuro consult called and this was suspected to be on going partial status epilepticus of partialseizures. Carbamezapine dosing checked, compliant but has not seen neurologist for years. Level was 12. Given keppra 1000mg loading. Ativan IV push for seizure. New onset Partial Seizures h/o epilepsy Plan: -EEG 03/07 read with overnight seizures persisent, seemed to have stopped latera on -no abnormal movements overnight noted -CT brain negative, neurochecks q2h, EEG with video monitoring as per neuro -cont keppra 750mg iv q12h; cont carbamezapine -awake, alert; ativan prn if seizures; d/c end-tidal monitoring -asp prec, HOB elevated -IVF as needed -oob to chair -PO regular diet -sinus simone, no hemodyn compromise, will cont to monitor, not on BB/CCB -no signs of infectious etiology or source noted DVT prophylaxis: no GI prophylaxis: ppi Central Line: no Arterial Line: no Bang Cathetor: no Disposition: can be transferred to tele if okay with neuro later today Code Status: full code Yasmani Levin MD [employer] (Electronically Signed)
[2018-03-08] MEDS: Nicotine Inhaler* 10 MG AMP INH PRN (09:54)
[2018-03-08 14:11] VITALS: BP 146/79
--- NOTE | 2018-03-08 14:52 | DS ---
Discharge Summary Patient Name: Bernard Isaacs Jr Date of Admission: 03/06/2018 Date of Discharge: 03/08/2018 Attending: Dr Yasmani Levin MD (critical care) Consultants: Dr Bernard Perkins MD (neurology) Admitting Diagnoses: 1) Partial Seizures, new onset Discharge Diagnoses: 1) new onset, Partial Seizures HPI/Hospital Course: 52y M pmhx of neurofibromatosis, epilepsy on carbamezapine, frontal lobe encephalopmalacia; comes in to Emergency room for evaluation of abnormal movements which started on the morning of 03/06/2018. He was noted to have lip smacking, facial grimacing. He is told to have nocturnal partial seizures for some time now according to . He was noted to have agitation and confusion at home. In ER, neurology saw the patient, noted the events and obtained an EEG which demonstrated frontal lobe sharp waves consistent with seizure activity. He was given Ativan IV and Keppra IV loading in which he was sedated and seizures apparently stopped. states he was recently started on xyzal for allergies (chronic allergies and has been on antiallery meds for years). In ICU , EEG demonstrated intermittent sharp waves overnight which eventually subsided. He was continued on keppra 750mg IV q12h along with previous carbamezapine dosing from home. Carbamezapine levels in patient were within normal limits. Clinically he has improved. MRI brain 03/07 demonstrated stable encephalomalacia of frontal lobes bilaterally and right anterior temporal lobe, consistent with traumatic brain injury; no space occupying lesion noted. Over the weekend, he has remained less symptomatic, improved otherwise, without further focal findings. Neurology has evaluated patient and given clearance for discharge home with continuation of Carbamezapine and also Keppra 750mg PO BID. He was advised to stop Levoceterizine, as side effect profile states possible seizures and they think this medication may have induced or lowered the threshold for seizures in this patient. Procedures/Imaging: Computer Tomography of Brain, Magnetic Imaging of Brain Laboratory/Data: see chart Discharge Medications: Continue Prior Home medications; New medication Keppra 750mg PO BID sent to pharmacy Diet: Regular Activity: As tolerated; recommend return to work 03/10/2018 Condition upon discharge: stable/improved Disposition: discharge home Code Status: full code Follow-up: PCP (Dr Anguiano), Neurology followup with Dr Bernard Perkins outpatient. Total Discharge time >30minutes Yasmani Levin MD [employer] [place] (Electronically Signed)
--- NOTE | 2018-03-08 22:12 | PN ---
PROGRESS NOTE: DATE OF FOLLOWUP: 03/08/18 HISTORY: Overnight, the patient had 3 seizures, which were recognized by nursing and also one additional bigger seizure noted during EEG review. These seizures consisted of sudden arousal from sleep followed by jerky irregular movements of the upper extremities with some posturing of the right upper extremity followed by agitated behavior as well as some more sustained tonic cry as well as calling out for help. Aside from these events, there were some possible smaller seizures as well accompanied by arousal from sleep, but overall the patient experienced many fewer seizures during this monitoring session. He had MRI yesterday, which showed stable bifrontal encephalomalacia, no evidence for tumor or other enhancing lesion. MEDICATIONS: 1. Carbamazepine 100 mg at 8 a.m. and 1800; 200 mg at noon and 300 mg at bedtime. 2. Levetiracetam 750 mg IV q.12 hours. 3. Nicotine replacement. 4. Prilosec 40 mg daily. 5. Temazepam 15 mg at bedtime as needed for insomnia which the patient received at 0220 this morning after he had one of his bigger seizures. PHYSICAL EXAMINATION: Vital Signs: Temperature 97.8, blood pressure 141/93, heart rate 59, oxygen saturation 94% on room air. On general exam, he was in no acute distress, in his hospital bed. He has poor dentition. His speech is slow, but understandable without any obvious aphasia. His versions are full without nystagmus. His face is symmetric with full strength. Hearing is intact to voice. On motor examination, he has normal strength in the upper and lower extremities with no pronator drift. There is no significant tremor or asterixis or myoclonus. Gummxa-rk-[id number] is intact without ataxia. MRI of the brain was personally reviewed as described in the HPI. Please refer to the exterminator helper monitoring report for further details on the EEG. IMPRESSION: A 52-year-old man with medically refractory epilepsy, which is primarily nocturnal in nature ordinarily who came in with acute repetitive seizures during the day on 03/06/18. He has been started on Keppra and Xyzal has been discontinued. His seizures have settled down perhaps to his baseline frequency though the baseline frequency is difficult to define. I discussed with the patient that at this point, his seizures may have been provoked in the setting of taking Xyzal, but I do not feel comfortable sending him out without Keppra as well and so for now, I recommend he also take levetiracetam 750 mg twice daily. We will send this prescription to his pharmacy today. Going forward, when he follows up with Dr. Perkins, they may decide whether he needs this medication exterminator helper or not. I also discussed driving regulations with him and since he did have these seizures during the daytime which would have impaired his ability to drive a car, I have informed him that he cannot drive at this point by [facility] law. He has had his license restricted in the past and says that people have had to bring him to and from work. 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 He requested a note to be excused from work tomorrow, Friday, which we will do for him. Otherwise, he will be seeing Dr. Perkins in followup for ongoing management of his refractory seizure disorder, which is likely related to his bifrontal brain injury as well as his history of neurofibromatosis. [id number]/[facility] #: [id number] SHIVA
--- NOTE | 2018-03-09 09:43 | EEG ---
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 These seizures were similar to his nocturnal events, consisting of agitated behavior, vocalizations, repetitive phrases, abnormal breathing, bringing his hand to his forehead, but had never occurred during the daytime and had never occurred as frequently as they did on the day of admission. They were also "stronger" than his historical seizures, per his . He had recently started taking Xyzal about 4 to 5 days before this. After routine EEG documented acute, repetitive seizures associated with a diffuse beta pattern on EEG, long-term video EEG was requested to assess for subclinical seizure activity and to follow treatment response. Introduction: INTRODUCTION: The EEG was monitored from 21 scalp electrodes. Nineteen electrodes consisted of the standard parasagittal, temporal and midline leads of the International 10 -20 system. In addition, special electrodes T1 and T2 were placed. EEG data were recorded on an [employer] system with simultaneous MPEG-4 digital video recording of patient behavior. EEG recording was in a monopolar montage with all electrodes referenced to FCz. Significant behavioral events were signaled by an event button, or putative electrical seizure events were detected by a computer program. All EEG data were reviewed in their entirety on a monitor with reconstruction of montages and adjustments of sensitivity and filtering. Simultaneous patient behavior was viewed on an adjacent monitor and correlated with the EEG. - Medications Active Medications: Carbamazepine (Tegretol Tab(*)) 100 mg PO 0800,1800 [facility] Last Admin: 03/07/18 17:57 Dose: 100 mg Carbamazepine (Tegretol Tab(*)) 200 mg PO 1200 [facility] Last Admin: 03/07/18 12:08 Dose: 200 mg Carbamazepine (Tegretol Tab(*)) 300 mg PO BEDTIME [facility] Last Admin: 03/07/18 20:12 Dose: 300 mg Device (Nicotine Mouth Piece*) 1 each INH .USE WITH NICOTROL PRN PRN Reason: CRAVING Levetiracetam 750 mg/ Sodium (Chloride) 107.5 mls @ 440 mls/hr IVPB Q12H [facility] Last Admin: 03/07/18 17:58 Dose: 440 mls/hr Nicotine (Nicotine Inhaler*) 10 mg INH Q2H PRN PRN Reason: CRAVING Last Admin: 03/07/18 20:12 Dose: 10 mg Omeprazole (Prilosec Cap*) 40 mg PO DAILY [facility] Last Admin: 03/07/18 09:11 Dose: 40 mg Temazepam (Restoril Cap*) 15 mg PO BEDTIME PRN PRN Reason: INSOMNIA Stop: 03/11/18 12:12 Temazepam (Restoril Cap*) 15 mg PO BEDTIME PRN PRN Reason: IF 15MG ISN'T ENOUGH - Description Background: The waking background showed appropriate organization with clearly defined anterior-posterior voltage and frequency gradients. There was a defined posterior dominant rhythm of 7-8 Hertz, which was symmetrical and showed normal reactivity. Anteriorly, there was the expected pattern of lower voltage and more irregular theta and beta rhythms. There was excess theta intermixed within the background as well as areas of more focal slowing, as described below. The sleep background was appropriately organized with well-developed spindles and vertex waves indicative of stage 2 sleep. These sleep transients showed appropriate morphology and were bilaterally synchronous and symmetrical. Development of diffuse delta range frequencies with dropout of stage 2 architecture accompanied transition to slow wave sleep, and a lower voltage mixed frequency pattern associated with eye movements was consistent with REM sleep. During sleep, there was increased density of epileptiform activity and discharges were of higher amplitude, as described below. When the patient was awake, there were frequent periods of waxing and waning, rhythmic 3 to 4 Hz slowing in the midline and posterior regions bilaterally, left greater than right. This would last tens of seconds at a time, and sometimes was associated with ictal patterns, though less often than during the previous day's recording. At other times, it appeared without any clear evolution in frequency or spatial distribution. In addition, there were other areas of frequent, polymorphic slowing. Most often, delta slowing was noted in the right parietal region, maximal at T6 and P4. There was also frequent slowing in the right frontotemporal region, maximal at T2 and F8, often in the range of 2 to 3 Hz. This was semi-rhythmic at times, lasting a few seconds. Polymorphic delta slowing was also noted in the left temporoparietal region, maximal at T5 and P3. Intericatal Epileptiform Activity: There were frequent, multifocal epileptiform discharges. The most frequent population was noted at T6 and P4 and were often high voltage, especially during sleep. These occurred every few pages. Independent discharges were also noted in the homologous region in the left hemisphere, though were not seen as frequently and were not as high voltage. In the right frontal region. low voltage spikes with aftergoing slow waves were noted at FP2 and into the right frontotemporal region, occurring at about 3 Hz for 2 to 3 seconds. Finally, sharp waves were sometimes seen maximally at PZ, P3 and P4, during sleep. Discharges were higher in voltage during sleep and more frequent. Ictal Activity: The patient experienced seizures during this recording, but definitive seizures occurred less frequently. There were 4 seizures noted during this recording which had somewhat different clinical features than those noted in the previous day's recording. With these events, the patient would have a very sudden arousal from sleep associated with a startle-like movement after which he would quickly sit up. He had jerky, irregular movements of his upper extremities, then his right hand would sometimes posture, he appeared stiff and there was a more sustained tonic cry. He would also grunt, pull at his blankets or youth care professional the sides of the mattress and had some snoring-type respirations. With one seizure, he had some kicking movements. Electrographically, the seizures generally appeared similar to those described in the previous day's recording. They generally began with an arousal out of sleep followed by fast frequency activity diffusely in the range of 9 to 15 Hz. After 10 seconds or so, the activity slowed to the alpha or theta range and was most prominently represented in the frontocentral regions. After another 10 to 20 seconds, this activity would then often develop into rhythmic 4 to 5 Hz activity. Sometimes, there was a clear termination to the ictal activity while other times it gradually blended into the background as the patient fell back to sleep. In some cases, the ictal pattern was not as clearly defined, but the patient's behavior was consistent with his typical seizure activity. Clinically, with seizures other than the 4 described above, the patient arose from sleep, moved around in an agitated way appearing uncomfortable, looked around, often lifted his head off the pillow repeatedly and sometimes sat all the way up in bed, brought his left hand to his forehead and sometimes regarded his right hand. He did not exhibit as much intelligible vocalization such as "help" and "wait". - Impression Impression: This is an abnormal long-term monitoring session. The patient experienced seizures which electrographically were diffuse in representation and began with an alpha or beta pattern which was maximally represented over the midline and central regions. Clinically, they had a frontal semiology as described above. In general, seizures had a less severe clinical accompaniment than during the previous day's recording, except for the 4 seizures described above. The interictal record is notable for multifocal slowing and discharges, with the most frequent discharges noted over the right hemisphere in the parietal region with other discharges in the right frontal region, left temporoparietal region and others in the posterior midline. The background otherwise demonstrated a slightly slow PDR, but otherwise showed good organization. Overall these findings are consistent with continued seizures, mostly arising out of sleep, likely with frontal lobe onset but not well-localized or lateralized on this recording, in the setting of multifocal increased epileptic potential and a mild , non-specific encephalopathy.
--- NOTE | 2018-03-11 03:43 | EEG ---
PROLONGED ELECTROENCEPHALOGRAPHY: DATE OF STUDY: 03/06/18 - ROOM #ICU-06 EEG DURATION: 1 hour and 15 minutes. ORDERING PHYSICIAN: Dr. Perkins. CLINICAL PROBLEM: Bernard Isaacs is a 52-year-old man with a history of epilepsy , neurofibromatosis, bilateral frontal traumatic brain injury who presented to the emergency department with acute repetitive seizures. EEG is requested to evaluate for epileptiform abnormalities. MEDICATIONS: Tegretol. During the course of the EEG, Ativan 2 mg x2 was given and 1 g of Keppra was infused. REPORT: The most notable feature of the EEG was the presence of frequent electroclinical seizures. These were occurring every 2 to 4 minutes at the beginning of the recording. Electrographically, the events began with the emergence of diffuse fast frequency activity in the 12 to 15 Hz range, often followed by decrease in frequency with rhythmic 4 to 5 Hz sharply contoured activity, which was maximal over the midline and frontocentral regions. These episodes generally lasted 1 to 2 minutes. Clinically, the patient would begin moaning, appear agitated in bed, exhibited some irregular breathing with a wide - eyed stare. He would then often become red in the face and appeared to be holding his breath. There was also prominent facial grimacing, which alternated between the left and right side of his face. After a seizure, he was nearly immediately back to baseline, smiling, able to respond, and appeared calm. During the first 20 minutes of the recording, he experienced 9 seizures. 2 mg of Ativan IV was administered, which decreased the frequency of seizures , but he experienced 2 additional seizures and so 7 minutes later, another 2 mg was administered followed 20 minutes later by 1 g of Keppra. After the second milligram of Ativan, he did not experience another electroclinical seizure. Otherwise, the waking background showed appropriate organization with clearly defined anterior to posterior voltage and frequency gradients. There was a posterior dominant rhythm of approximately 8 Hz, which was symmetrical. This was reactive to eye opening. The background otherwise demonstrated multifocal slowing and discharges. The most common location of slowing and discharge is within the right temporoparietal region with tyjassqa-ui-fard voltage spike and slow wave discharges, maximal at T6 and P4 with the slowing corresponding to this region as well. There was also polymorphic slowing in the delta range noted in the bilateral frontal and central regions. After Ativan was given, there was excess beta activity consistent with medication effect. After Ativan as well, there were frequent periods of rhythmic 2 to 3 Hz slowing, which was maximal in the bilateral frontocentral regions with overriding faster frequency activity. This activity could last many seconds but did not have any evolution in terms of frequency or spatial location, and the patient did not exhibit any clinical symptoms. CLINICAL IMPRESSION: This is a markedly abnormal EEG due to the presence of acute repetitive seizures at the beginning of the recording, which were occurring every 2 to 4 minutes. Electrographically, these had a diffuse distribution and began with a trt-ad-awiqevkh voltage beta pattern diffusely. Clinically, the semiology of these seizures was consistent with frontal lobe onset. With the administration of lorazepam as well as levetiracetam, the frequency of these seizures greatly decreased. The background was otherwise notable for a slow posterior dominant rhythm and multifocal slowing and discharges, most prominent of which in the right temporoparietal region. [id number]/[facility] #: [id number] SHIVA
== END 2018-03-08 14:46 | disposition home or self-care (01) | DRG 101 ==
LOC: ED 08:35 → ICU 11:24
PROVIDERS: ADMIT Internal Medicine Critical Care Medicine; ATTEND Internal Medicine Critical Care Medicine
DX: G40.109 Localization-related (focal) (partial) symptomatic epilepsy and epileptic syndromes with simple partial seizures, not intractable, without status epilepticus (principal); G93.89 Other specified disorders of brain; Q85.00 Neurofibromatosis, unspecified; Z87.820 Personal history of traumatic brain injury; Z88.8 Allergy status to other drugs, medicaments and biological substances; Z79.899 Other long term (current) drug therapy
CPT/HCPCS: 36415; 36600; 70450; 70553; 80053; 80156; 81003; 82803; 83605; 83735; 85025; 87641; 95813; 95951; 99285; A9270-GY; A9579; J2060

== ENCOUNTER 2018-07-30 10:17 | Emergency (ER) | payer OTHER ==
--- OUTSIDE RECORDS SUMMARY | 2018-07-30 10:41 | XMS REPORT ---
:1965 External Reference #:[id number] Author Organization [facility] Address [address] [place] [address] Phone [phone] Care Team Providers Name Role Phone Olivia Anguiano MD Primary Care Physician Unavailable Payers Type Date Identification Numbers Payment Provider Subscriber Commercial Policy Number: [id number] [employer] Carina Isaacs PayID: [id number] [address] [place] [address] Problems Date Description Provider Status Onset: 03/17/2018 Epilepsy characterized by intractable Bernard Perkins MD Active complex partial seizures Onset: Generalized epilepsy Active Family History Date Family Member(s) Problem(s) Comments Father Pacemaker Father Father Dementia Mother Melanoma Social History Type Date Description Comments ETOH Use Rarely consumes alcohol Smoking Patient is a former smoker Allergies, Adverse Reactions, Alerts Date Description Reaction Status Severity Comments 03/17/2018 Valproic Acid active Hives 03/17/2018 Phenobarbital active 03/17/2018 Dilantin active Medications Medication Date Status Form Strength Qnty SIG Indications Ordering Provider Arabella 07/01 Active Tablets 1000mg 105ta 1 by bs mouth in MD Gregorio am 1/2 at noon 1/2 at 6pm and 1 and 1/2 at bedtime Temazepam 04/02 Active Capsules 15mg 60cap 1-2 s tablets MD Gregorio at bedtime mdd 2 mdd 2 mdd 2 Carbamazepine 00 Active Tablets 200mg take 1 tablet by MD Gregorio mouth every morning, take 1 tablet by mouth every noon, 1/2 tablet in the evening, 08/21 @ bedtime Clonazepam Active Tablets 1mg Take 2 Tablets By Mouth AT Bedtime Proair HFA Active Aerosol 108(90Bas Inhale 2 Unknown /0000 e) Puffs By mcg/Act Mouth Every 4 Hours as Needed For Wheezing Ranitidine HCL Active Capsules 150mg take one Unknown /0000 capsule by mouth twice a day Omeprazole Active Capsules DR 40mg 1 by Unknown /0000 mouth every day Mometasone Active Suspension 50mcg/Act [place] 1 Unknown Furoate /0000 To 2 Sprays In Each Nostril Every Day Alisha Allergy Active Tablets 60mg 1 by Unknown /0000 mouth every day Keppra 04/02 Hx Tablets 500mg 150ta take2 bs tablet MD Gregorio - every 07/01 morning tablet at noon and 3 tablets every night Keppra 03/17 Hx Tablets 500mg 120ta take1 bs tablet MD Gregorio - every 04/02 morning tablet at noon 2 @ hs Kera 03/14 Hx Tablets 1000mg 60tab 1 by Ryan /2017 skyler Girard M.D. - twice a This Has Not Been Started Levetiracetam Hx Tablets 750mg Take 1 Unknown /0000 Tablet By - Mouth 03/17 Morning, One Half Tablet AT Noon And One Tablet AT hs Zyrtec Allergy Hx Tablets 10mg 1 by Unknown /0000 mouth - every day 05/27 Lexapro Hx Tablets 10mg 1 by Unknown /0000 mouth - every day 06/30 Vital Signs Date Vital Result Comment 07/01/2018 Height 64 inches 5'4" Weight 141.12 lb Heart Rate 80 /min BP Systolic Sitting 122 mmHg BP Diastolic Sitting 82 mmHg BMI (Body Mass Index) 24.2 kg/m2 05/28/2018 Height 64 inches 5'4" Weight 136.38 lb Heart Rate 60 /min BP Systolic 150 mmHg BP Diastolic 94 mmHg BMI (Body Mass Index) 23.4 kg/m2 05/13/2018 Height 64 inches 5'4" Weight 133.00 lb Heart Rate 78 /min BP Systolic Sitting 124 mmHg BP Diastolic Sitting 80 mmHg BMI (Body Mass Index) 22.8 kg/m2 04/02/2018 Height 64 inches 5'4" Weight 127.50 lb Heart Rate 78 /min BP Systolic Sitting 144 mmHg BP Diastolic Sitting 92 mmHg BMI (Body Mass Index) 21.9 kg/m2 03/17/2018 Height 64 inches 5'4" Weight 125.50 lb Heart Rate 88 /min BP Systolic Sitting 140 mmHg BP Diastolic Sitting 90 mmHg BMI (Body Mass Index) 21.5 kg/m2 Results Test Date Test Result H/L Range Note CBC Auto Diff 05/09/2018 White Blood Count 7.2 10^3/uL 3.5-10.8 Red Blood Count 3.99 10^6/uL Low 4.00-5.40 Hemoglobin 12.7 g/dL Low 14.0-18.0 Hematocrit 35 % Low 42-52 Mean Corpuscular Volume 88 fL 80-94 Mean Corpuscular Hemoglobin 32 pg High 27-31 Mean Corpuscular HGB Conc 36 g/dL 31-36 Red Cell Distribution Width 13 % 10.5-15 Platelet Count 171 10^3/uL 150-450 Mean Platelet Volume 7.1 um3 Low 7.4-10.4 Abs Neutrophils 3.4 10^3/uL 1.5-7.7 Abs Lymphocytes 3.1 10^3/uL 1.0-4.8 Abs Monocytes 0.5 10^3/uL 0-0.8 Abs Eosinophils 0.2 10^3/uL 0-0.6 Abs Basophils 0.1 10^3/uL 0-0.2 Abs Nucleated RBC 0 10^3/uL Granulocyte % 46.6 % 38-83 Lymphocyte % 42.8 % 25-47 Monocyte % 6.6 % 0-7 Eosinophil % 3.0 % 0-6 Basophil % 1.0 % 0-2 Nucleated Red Blood Cells % 0.2 Laboratory test finding 05/09/2018 Carbamazepine (Tegretol) 9.3 g/mL 4.0-12.0 Levetiracetam (Keppra) 22.4 g/mL 1 Laboratory test finding 03/28/2018 Levetiracetam (Keppra) 24.3 g/mL 2 1 REFERENCE VALUE 12.0 - 46.0 ADDITIONAL INFORMATION This test was developed and its performance characteristics determined by [facility] in a manner consistent with CLIA requirements. This test has not been cleared or approved by the U.S. Food and Drug Administration. Test Performed by: [facility] - [address] [address] 2 REFERENCE VALUE 12.0 - 46.0 ADDITIONAL INFORMATION This test was developed and its performance characteristics determined by [facility] in a manner consistent with CLIA requirements. This test has not been cleared or approved by the U.S. Food and Drug Administration. Test Performed by: [facility] - [address] [address] Procedures Date CPT Code Description Status 05/13/2018 82546 EEG Recording Awake & Drowsy Completed 04/02/2018 85068 EEG Recording Awake & Drowsy Completed 03/17/2018 55318 EEG Recording Awake & Drowsy Completed 03/07/2018 01034 EEG Monitoring & Video Recording Completed 03/06/2018 96386 EEG Monitoring & Video Recording Completed 03/06/2018 89786 Electroencephalogram EEG Extended Monitoring Over 1 Completed Hour Encounters Type Date Location Provider CPT E/M Dx Office Visit 05/28/2018 [facility] [place] [address] G40.219 3:45p Z79.899 Office Visit 05/13/2018 4:15p [facility] Bernard Perkins 97631 G40.219 Office Visit 04/02/2018 11:00a [facility] Bernard Perkins 46414 G40.219 Office Visit 03/17/2018 2:15p [facility] Bernard Perkins 72514 G40.219 Office Visit 03/08/2018 3:59p [facility] [address] G40.219 Q85.00 Z87.820 Office Visit 03/08/2018 8:53a [place] [address] R56.9 G40.309 Office Visit 03/07/2018 3:58p [facility] [address] G40.219 Q85.00 Z87.820 Office Visit 03/07/2018 8:52a [place] [address] R56.9 G40.309 Office Visit 03/06/2018 3:54p [facility] Bernard Perkins 72389 G40.219 MD Q85.00 Z87.820 Office Visit 03/06/2018 8:46a [place] [address] R56.9 G40.309 Plan of Care Future Appointment(s):09/07/2018 4:00 pm - Bernard Perkins MD at [facility] Fdfxtj6007/01/2018 - Bernard Perkins MDG40.219 Local-rel symptc epi w cmplx part seiz, ntrct, w/o stat epiNew Orders:EEG, Monitoring & Video RecordingComments:His morning seizures have been worse within a week or two after reducing his night time dose of keppra because family shifted some of the keppra earlier in the day. Will increase keppra to 1000/500/500/1500. If this increase does not work will give clonopin 1mg at 4am but this may make him tired during the day. Hopefully vns willhelp with seizure control.Rediscussed getting video eeg but family reluctant for a hospitalization. Discussed issues in detail and that it was the first step to see if he was a surgical candidateFollow up:after vnsQ85.00 Neurofibromatosis, unspecified
--- NOTE | 2018-07-30 10:53 | ED ---
Head Injury - HPI Summary HPI Summary: Patient is a 52-year-old male who presents emergency department for a head injury and scalp laceration that occurred around 0 300 today. She has history of seizures and is currently following with numerous neurologists. Patient states he has been having increased seizures over the last several weeks and is going to be seen in [place] for further testing. Patient states he was in the basement working on a project early this morning when he had a seizure and hit the top of his head on unknown object. Patient and his states this is typical for him and he has been having about 3 seizures a day which his neurologist earlier. No other injuries were sustained. Patient is unaware of his last tetanus immunization. He is not anticoagulated. No associated symptoms of severe headache, vomiting or change in mental status. Fall was unwitnessed. Touching wound makes symptoms worse. Rest make symptoms better. 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 Pain Intensity: 2 - Allergies/Home Medications Allergies/Adverse Reactions: Allergies Allergy/AdvReac Type Severity Reaction Status Date / Time divalproex sodium Allergy Rash Verified 03/06/18 08:44 [From Depakote] phenobarbital Allergy Unknown Verified 03/06/18 08:44 Reaction Details phenytoin [From Dilantin] Allergy Unknown Verified 03/06/18 08:44 Reaction Details PMH/Surg Hx/FS Hx/Imm Hx Previously Healthy: Yes Endocrine/Hematology History: Denies: Hx Diabetes, Hx Thyroid Disease, Hx Anemia Cardiovascular History: Reports: Hx Hypertension - Takes meds "on and off" Denies: Hx Pacemaker/ICD Respiratory History: Denies: Hx Asthma, Hx Chronic Obstructive Pulmonary Disease (COPD) Sensory History: Reports: Hx Contacts or Glasses Denies: Hx Hearing Aid Opthamlomology History: Reports: Hx Contacts or Glasses Neurological History: 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 Psychiatric History: Denies: Hx Panic Disorder - Cancer History Cancer Type, Location and Year: SKIN CA - Surgical History Surgery Procedure, Year, and Place: Lymph node bx Infectious Disease History: No Infectious Disease History: Denies: Hx Hepatitis, Hx Human Immunodeficiency Virus (HIV), Traveled Outside the [place] in Last 30 Days - Family History Known Family History: Positive: Other - noncontributory - Social History Occupation: Employed Full-time Lives: With Family Alcohol Use: None Hx Substance Use: No Substance Use Type: Reports: None Smoking Status (MU): Former Smoker Review of Systems Gastrointestinal: Negative Musculoskeletal: Negative Positive: Headache. Negative: Weakness, Paresthesia, Numbness All Other Systems Reviewed And Are Negative: Yes Physical Exam Triage Information Reviewed: Yes Vital Signs On Initial Exam: Initial Vitals Temp Pulse Resp BP Pulse Ox 96.8 F 67 16 153/91 96 07/30/18 10:23 07/30/18 10:23 07/30/18 10:23 07/30/18 10:23 07/30/18 10:23 Vital Signs Reviewed: Yes Appearance: Positive: Well-Appearing - Pt. sitting up in bed in NAD. present. Answers question appropriately. Skin: Positive: Warm, Dry Head/Face: Positive: Other - Large hematoma with overlying superficial laceration roughly 4cm Eyes: Positive: Normal, EOMI, COSMO, Conjunctiva Clear Neck: Positive: Supple, Nontender - No midline tenderness. No pain with ROM. Neurological: Positive: Normal, Alert, Oriented to Person Place, Time, CN Intact II-III Psychiatric: Positive: Affect/Mood Appropriate - [place] Coma Scale Best Eye Response: 4 - Spontaneous Best Motor Response: 6 - Obeys Commands Best Verbal Response: 5 - Oriented Coma Scale Total: 15 Procedures - Laceration/Wound Repair 1 Location: head Description: Linear Anesthesia: Local, 2.0%, Lido, Epi Length, Depth and Shape: 4 cm linear Betadine Prep?: No - hibiclens Irrigated w/ Saline (ccs): 50 Laceration/Wound Explored: clean Closure: Single Layer Suture Type: Nylon - 4-0 Number of Sutures: 3 Layer Closure?: No Sterile Dressing Applied?: No Diagnostics - Vital Signs Vital Signs Temp Pulse Resp BP Pulse Ox 07/30/18 10:23 96.8 F 67 16 153/91 96 - Laboratory Lab Statement: Any lab studies that have been ordered have been reviewed, and results considered in the medical decision making process. Head Injury Course/Dx Assessment/Plan: Pt. presenting for head injury and laceration after a seizure. Pt. has no neuro deficits and is well appearing. Pt. and state that it is normal for him to have daily seizures and he is working with his neurologist currently to figure out why. He has a neuro apt. tomorrow. CT scan obtained to r /o bleed, fx. CT is negative for acute findings, per radiology. Wound repaired as noted above. Suture removal in 5 days. Keep wound clean and dry. Ice intermittently. Tylenol for pain as directed. To return to ER if sxs change or worsen. - Diagnoses Provider Diagnoses: Seizure disorder, Scalp laceration, Hematoma Discharge - Sign-Out/Discharge Documenting (check all that apply): Patient Departure - Discharge Plan Condition: Good Disposition: HOME Patient Education Materials: Care For Your Stitches (ED), Head Injury (ED) Referrals: Olivia Anguiano MD [Primary Care Provider] - Additional Instructions: Suture removal in 5 days Keep wound clean and dry Return to ER for new symptoms, redness, swelling or drainage from wound - Billing Disposition and Condition Condition: GOOD Disposition: Home
[2018-07-30] MEDS ORDERED: Lidocain 1% EPI 1:100,000 * 30 ML MDV INJ ONE (11:09)
[2018-07-30] MEDS ORDERED: Tetan/Diph/Pertus SYR(Tdap)* 0.5 ML SYR(BOOSTRIX) use SYR IM ONE (11:09)
[2018-07-30] MEDS ORDERED: Lidocaine 2% W/EPI 1:100,000* 20 ML MDV INJ ONE (11:37)
[2018-07-30] MEDS ORDERED: Lidocaine 2% EPI 1:200000 MPF*10-20 ML VIAL ONE (11:42)
--- NOTE | 2018-07-30 11:56 | RAD ---
Indication: Fell and hit head last night. Now has laceration on LEFT occipital region. Comparison: March 07, 2018 MRI and March 06, 2018 CT. Technique: Noncontrast CT vertex of skull through foramen magnum. Report: Negative for intra or extra-axial hemorrhage. Stable encephalomalacia involving the RIGHT greater than LEFT frontal lobes inferiorly most consistent with sequela of remote trauma. Unremarkable cerebral sulci, ventricles, and basal cisterns. Mild prominence of the cerebellar fissures without change. Negative for mancia matter white matter obscuration or mass effect. Negative for calvarial or skull base fracture or suspicious focal osseous lesions. Mild mucosal thickening at the partially visualized LEFT maxillary and bilateral ethmoid sinuses. Negative for paranasal sinus fluid levels within the [id number]. Clear mastoid air spaces. Negative for scalp hematoma. IMPRESSION: #. No CT evidence for acute traumatic brain injury. #. Stable encephalomalacia involving the RIGHT greater than LEFT frontal lobes inferiorly most consistent with sequela of remote trauma.
[2018-07-30 12:47] VITALS: BP 158/88
== END 2018-07-30 12:35 | disposition home or self-care (01) ==
LOC: ED 10:17
DX: S01.01XA Laceration without foreign body of scalp, initial encounter (principal); S00.03XA Contusion of scalp, initial encounter; G40.909 Epilepsy, unspecified, not intractable, without status epilepticus; I10 Essential (primary) hypertension; W22.8XXA Striking against or struck by other objects, initial encounter; Y92.9 Unspecified place or not applicable; Z85.828 Personal history of other malignant neoplasm of skin; Z87.891 Personal history of nicotine dependence
CPT/HCPCS: 12001; 70450; 90471; 90715; 99282

== ENCOUNTER 2018-08-04 16:21 | Emergency (ER) | payer OTHER ==
--- NOTE | 2018-08-04 17:24 | ED ---
Back Pain - HPI Summary HPI Summary: 52-year-old male presents with right shoulder pain for the past couple days. He states that he had a seizure and fell onto his right shoulder. He has pain over his right posterior scapula. He states he gets occasional numbness and tingling to his right arm. Denies any weakness. He has full range of motion shoulder. He has no pain over the shoulder joint mostly located on the side of his neck. He admits occasional neck pain. - History of Current Complaint Chief Complaint: EDBackInjuryPain Stated Complaint: RT SHLDR/ARM PAIN Time Seen by Provider: 08/04/18 16:40 Pain Intensity: 5 - Allergies/Home Medications Allergies/Adverse Reactions: Allergies Allergy/AdvReac Type Severity Reaction Status Date / Time divalproex sodium Allergy Rash Verified 08/04/18 16:38 [From Depakote] phenobarbital Allergy Unknown Verified 08/04/18 16:38 Reaction Details phenytoin [From Dilantin] Allergy Unknown Verified 08/04/18 16:38 Reaction Details PMH/Surg Hx/FS Hx/Imm Hx Endocrine/Hematology History: Denies: Hx Diabetes, Hx Thyroid Disease, Hx Anemia Cardiovascular History: Reports: Hx Hypertension - Takes meds "on and off" Denies: Hx Pacemaker/ICD Respiratory History: Denies: Hx Asthma, Hx Chronic Obstructive Pulmonary Disease (COPD) Sensory History: Reports: Hx Contacts or Glasses Denies: Hx Hearing Aid Opthamlomology History: Reports: Hx Contacts or Glasses Neurological History: 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 Psychiatric History: Denies: Hx Panic Disorder - Cancer History Cancer Type, Location and Year: SKIN CA - Surgical History Surgery Procedure, Year, and Place: Lymph node bx - Immunization History Date of Tetanus Vaccine: unknown Infectious Disease History: No Infectious Disease History: Denies: Hx Hepatitis, Hx Human Immunodeficiency Virus (HIV), Traveled Outside the US in Last 30 Days - Family History Known Family History: Positive: Other - noncontributory - Social History Alcohol Use: None Hx Substance Use: No Substance Use Type: Reports: None Smoking Status (MU): Former Smoker Review of Systems Negative: Fever Negative: Chest Pain Negative: Shortness Of Breath Positive: Myalgia - right shoulder pain Positive: Paresthesia All Other Systems Reviewed And Are Negative: Yes Physical Exam Triage Information Reviewed: Yes Vital Signs On Initial Exam: Initial Vitals Temp Pulse Resp BP Pulse Ox 97.6 F 64 16 180/91 97 08/04/18 16:23 08/04/18 16:23 08/04/18 16:23 08/04/18 16:23 08/04/18 16:23 Vital Signs Reviewed: Yes Appearance: Positive: Well-Appearing Skin: Positive: Warm, Dry Head/Face: Positive: Normal Head/Face Inspection Eyes: Positive: Normal, Conjunctiva Clear ENT: Positive: Pharynx normal Respiratory/Lung Sounds: Positive: Clear to Auscultation, Breath Sounds Present Cardiovascular: Positive: Normal, RRR Musculoskeletal: Positive: Strength/ROM Intact - neck and right arm, Other - good pulses, sensation grossly intact Neurological: Positive: Sensory/Motor Intact - arms, Reflexes Intact - biceps Psychiatric: Positive: Normal Diagnostics - Vital Signs Vital Signs Temp Pulse Resp BP Pulse Ox 08/04/18 16:23 97.6 F 64 16 180/91 97 - Laboratory Lab Statement: Any lab studies that have been ordered have been reviewed, and results considered in the medical decision making process. - CT neck CT Interpretation: Positive (See Comments) - IMPRESSION: There is approximately 25-50% compression of the T1 vertebra with small avulsion of the superior aspect of the spinous process of T1. Ligamentous injury is not totally excluded. CT Interpretation Completed By: Radiologist Back Pain Course/Dx - Course Course Of Treatment: 52-year-old male presents with right shoulder pain for the past couple days. He states that he had a seizure and fell onto his right shoulder. He has pain over his right posterior scapula. He states he gets occasional numbness and tingling to his right arm. Denies any weakness. He has full range of motion shoulder. He has no pain over the shoulder joint mostly located on the side of his neck. He admits occasional neck pain. on exam has tenderness over right scapula, nontender neck. full ROM shoulder. neurovascular intact. xray show compression fracture of T1 vertebrae. this is consistent with patient numbness sometimes but states numbness moves location. no neuro deficit on exam. discussed case with dr sanders who says can follow up with primary or neurosurgery. will discharge with lidocaine patch. patient understand and agrees with plan. - Diagnoses Provider Diagnoses: Right shoulder pain, Arm paresthesia, right, Traumatic compression fracture of T1 thoracic vertebra Discharge - Sign-Out/Discharge Documenting (check all that apply): Patient Departure - Discharge Plan Condition: Good Disposition: HOME Prescriptions: Lidocaine PATCH 5%* [Lidoderm 5% Patch*] 1 patch TRANSDERM DAILY #10 patch Patient Education Materials: Vertebral Compression Fracture (ED) Referrals: Daniel Thomas MD [Medical Doctor] - Olivia Anguiano MD [Primary Care Provider] - Additional Instructions: Apply lidocaine patches to area for up to 12 hours in one 24 hour period Use ibuprofen or Tylenol for pain every 6 hours ice/heat area, move as much as possible Follow up with primary within 5 days or with neurosurgery Return to ED if develop any new or worsening symptoms - Billing Disposition and Condition Condition: GOOD Disposition: Home
--- NOTE | 2018-08-04 17:29 | RAD ---
Indication: Right arm pain. CT of the cervical spine was obtained in the axial plane. Sagittal and coronal reconstructed images were obtained. The skull base demonstrates no evidence of fracture. Degenerative changes of the atlantoaxial joint is noted. The C1 ring is intact. C2, C3, C4,, C5, C6 and C7 the vertebral bodies appear normal in height and alignment. There is approximately 25-50% compression of the T1 vertebra. Minimal retropulsion is noted. In addition there appears to be a small avulsion from the superior margin of the spinous process. Ligamentous injury is not totally excluded. The lung apices are otherwise unremarkable. IMPRESSION: There is approximately 25-50% compression of the T1 vertebra with small avulsion of the superior aspect of the spinous process of T1. Ligamentous injury is not totally excluded.
[2018-08-04] MEDS ORDERED: Lidocaine PATCH 5%* 1 PATCH ONE (17:34)
[2018-08-04 17:57] VITALS: BP 126/69
[2018-08-04] MEDS ORDERED: Lidocaine PATCH 5%* 1 PATCH TRANSDERM SCH (18:00)
[2018-08-04] MEDS ORDERED: Lidocaine Patch REMOVE* 1 NOTE MISC SCH (21:00)
== END 2018-08-04 17:56 | disposition home or self-care (01) ==
LOC: ED 16:21
DX: M25.511 Pain in right shoulder (principal); R20.2 Paresthesia of skin; S22.010A Wedge compression fracture of first thoracic vertebra, initial encounter for closed fracture; W19.XXXA Unspecified fall, initial encounter; Y92.9 Unspecified place or not applicable; R56.9 Unspecified convulsions; Z88.8 Allergy status to other drugs, medicaments and biological substances; Z87.891 Personal history of nicotine dependence
CPT/HCPCS: 72125; 99282; A9270-GY

== ENCOUNTER 2018-10-18 02:58 | Emergency (ER) | payer OTHER ==
--- OUTSIDE RECORDS SUMMARY | 2018-10-18 03:18 | XMS REPORT | Continuity of Care Document ---
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 Active Family History Date Family Member(s) Problem(s) Comments Father Pacemaker Father Father Dementia Mother Melanoma Social History Type Date Description Comments Sex Unknown Hand Dominance Right-handed ETOH Use Rarely consumes alcohol Tobacco Use Start: Unknown End: Unknown Patient is a former smoker Smoking Status Reviewed: 10/07/18 Patient is a former smoker Allergies, Adverse Reactions, Alerts Date Description Reaction Status Severity Comments 03/17/2018 Valproic Acid Active Hives 03/17/2018 Phenobarbital Active 03/17/2018 Dilantin Active Medications Medication Date Status Form Strength Qnty SIG Indications Ordering Provider Zonisamide 09/07 Active Capsules 100mg 60cap 3 by Bernard Landy s mouth at MD Gregorio bedtime Somi Brace 08/05 Active 1unit Apply and S22.010A Daniel s wear kemal Thomas M.D. directed. Keppra 07/01 Active Tablets 1000mg 105ta 1 by Bernard bs mouth in MD Gregorio in the morning 1/2 at noon 1/2 at 6pm and 1 and 1/2 at bedtime Temazepam 04/02 Active Capsules 15mg 60cap 1-2 s tablets MD Gregorio at bedtime mdd 2 mdd 2 mdd 2 Carbamazepine Active Tablets 200mg take 1 Bernard tablet by MD Gregorio mouth every morning, take 1 tablet by mouth every noon, 1/2 tablet in the evening, 08/21 @ bedtime Clonazepam Active Tablets 1mg Take 2 Unknown /0000 Tablets By Mouth AT Bedtime Proair HFA Active Aerosol 108(90Bas Inhale 2 Unknown /0000 e) Puffs By mcg/Act Mouth Every 4 Hours as Needed For Wheezing Omeprazole Active Capsules DR 40mg 1 by Unknown /0000 mouth every day Mometasone Active Suspension 50mcg/Act Gordon 1 Unknown Furoate /0000 To 2 Sprays In Each Nostril Every Day Alisha Allergy Active Tablets 60mg 1 by Unknown /0000 mouth every day as needed Hydrocodone-Savage Active Tablets 5-325mg 1 or 2 Unknown taminophen /0000 tabs by mouth every 6-8 hours as needed for pain Keppra 04/02 Hx Tablets 500mg 150ta take2 bs tablet MD Gregorio - every 07/01 morning tablet at noon and 3 tablets every night Keppra 03/17 Hx Tablets 500mg 120ta take1 bs tablet MD Gregorio - every 04/02 morning tablet at noon 2 @ hs Keppra 03/14 Hx Tablets 1000mg 60tab 1 by Ryan skyler Girard M.D. - twice a This Has Not Been Started Levetiracetam Hx Tablets 750mg Take 1 Unknown /0000 Tablet By - Mouth 03/17 Morning, One Half Tablet AT Noon And One Tablet AT hs Zyrtec Allergy Hx Tablets 10mg 1 by Unknown /0000 mouth - every day 05/27 Ranitidine HCL Hx Capsules 150mg take one Unknown /0000 capsule - by mouth 09/06 twice a day Lexapro Hx Tablets 10mg 1 by Unknown /0000 mouth - every day 06/30 Immunizations Description No Information Available Vital Signs Date Vital Result Comment 10/07/2018 3:57pm Height 64.5 inches 5'4.50" Weight 140.00 lb BP Systolic Sitting 138 mmHg BP Diastolic Sitting 80 mmHg Pain Level 2 BMI (Body Mass Index) 23.7 kg/m2 09/21/2018 1:42pm Height 64.5 inches 5'4.50" Weight 140.00 lb BP Systolic Sitting 120 mmHg BP Diastolic Sitting 70 mmHg Pain Level 2 BMI (Body Mass Index) 23.7 kg/m2 09/07/2018 4:07pm Height 64.5 inches 5'4.50" Weight 140.00 lb Heart Rate 70 /min BP Systolic Sitting 128 mmHg BP Diastolic Sitting 72 mmHg BMI (Body Mass Index) 23.7 kg/m2 08/05/2018 3:37pm Height 64 inches 5'4" Weight 144.25 lb Heart Rate 64 /min BP Systolic Sitting 142 mmHg BP Diastolic Sitting 100 mmHg Respiratory Rate 20 /min Body Temperature 96.3 F BMI (Body Mass Index) 24.8 kg/m2 07/01/2018 11:27am Height 64 inches 5'4" Weight 141.12 lb Heart Rate 80 /min BP Systolic Sitting 122 mmHg BP Diastolic Sitting 82 mmHg BMI (Body Mass Index) 24.2 kg/m2 05/28/2018 4:03pm Height 64 inches 5'4" Weight 136.38 lb Heart Rate 60 /min BP Systolic 150 mmHg BP Diastolic 94 mmHg BMI (Body Mass Index) 23.4 kg/m2 05/13/2018 4:08pm Height 64 inches 5'4" Weight 133.00 lb Heart Rate 78 /min BP Systolic Sitting 124 mmHg BP Diastolic Sitting 80 mmHg BMI (Body Mass Index) 22.8 kg/m2 04/02/2018 10:38am Height 64 inches 5'4" Weight 127.50 lb Heart Rate 78 /min BP Systolic Sitting 144 mmHg BP Diastolic Sitting 92 mmHg BMI (Body Mass Index) 21.9 kg/m2 03/17/2018 2:24pm Height 64 inches 5'4" Weight 125.50 lb Heart Rate 88 /min BP Systolic Sitting 140 mmHg BP Diastolic Sitting 90 mmHg BMI (Body Mass Index) 21.5 kg/m2 Results Test Date Facility Test Result H/L Range Note CBC Auto Diff 05/09/2018 [facility] White Blood 7.2 10^3/uL N 3.5-10.[address] [place] [address] [phone] Red Blood Count 3.99 10^6/uL Low 4.00-5.40 Hemoglobin 12.7 g/dL Low 14.0-18.0 Hematocrit 35 % Low 42-52 Mean Corpuscular Volume 88 fL N 80-94 Mean Corpuscular Hemoglobin 32 pg High 27-31 Mean Corpuscular HGB Conc 36 g/dL N 31-36 Red Cell Distribution Width 13 % N 10.5-15 Platelet Count 171 10^3/uL N 150-450 Mean Platelet Volume 7.1 um3 Low 7.4-10.4 Abs Neutrophils 3.4 10^3/uL N 1.5-7.7 Abs Lymphocytes 3.1 10^3/uL N 1.0-4.8 Abs Monocytes 0.5 10^3/uL N 0-0.8 Abs Eosinophils 0.2 10^3/uL N 0-0.6 Abs Basophils 0.1 10^3/uL N 0-0.2 Abs Nucleated RBC 0 10^3/uL Granulocyte % 46.6 % N 38-83 Lymphocyte % 42.8 % N 25-47 Monocyte % 6.6 % N 0-7 Eosinophil % 3.0 % N 0-6 Basophil % 1.0 % N 0-2 Nucleated Red Blood Cells % 0.2 Laboratory test 05/09/2018 [facility] Carbamazepine 9.3 g/mL N 4.0-12.0 finding [address] (Tegretol) [place] [address] [phone] Levetiracetam (Keppra) 22.4 g/mL 1 Laboratory test 03/28/2018 [facility] Levetiracetam 24.3 g/mL 2 finding [facility] [employer] (Keppra) [place] [address] [phone] 1 REFERENCE VALUE 12.0 - 46.0 ADDITIONAL INFORMATION This test was developed and its performance characteristics determined by [facility] in a manner consistent with CLIA requirements. This test has not been cleared or approved by the U.S. Food and Drug Administration. Test Performed by: [facility] - [address] [address] 2 REFERENCE VALUE 12.0 - 46.0 ADDITIONAL INFORMATION This test was developed and its performance characteristics determined by [facility] in a manner consistent with CLIA requirements. This test has not been cleared or approved by the U.S. Food and Drug Administration. Test Performed by: [facility] - [address] [address] Procedures Date Code Description Status 05/13/2018 39965 EEG Recording Awake & Drowsy Completed 04/02/2018 46301 EEG Recording Awake & Drowsy Completed 03/17/2018 99009 EEG Recording Awake & Drowsy Completed 03/07/2018 53902 EEG Monitoring & Video Recording Completed 03/06/2018 46851 EEG Monitoring & Video Recording Completed 03/06/2018 67228 Electroencephalogram EEG Extended Monitoring Over 1 Hour Completed Encounters Type Date Location Provider Dx Diagnosis Office Visit 09/21/2018 [facility] Jessica Garcia, S22.010D Wedge comprsn fx 1:30p PA-C first thor vert, subs for fx w routn heal Office Visit 09/07/2018 [facility] Bernard Perkins, G40.219 Local-rel symptc 4:00p Clinic MD v[facility]a hug[facility] cmplx part seiz, ntrct, w/o stat epi Office Visit 08/05/2018 [facility] Jessica Garcia, S22.010A Wedge compression 3:30p PA-C fracture of first thoracic vertebra, init Office Visit 07/01/2018 [facility] Bernard Perkins, G40.219 Local-rel symptc 11:00a Clinic MD vinita hughes cmplx part seiz, ntrct, w/o stat epi Q85.00 Neurofibromatosis, unspecified Office Visit 05/28/2018 [facility] Bernard G40.219 Local-rel 3:45p Clinic MD evangelista Perkinstc epi w cmplx part seiz, ntrct, w/o stat epi Z79.899 Other mcfp (current) drug therapy Office Visit 05/13/2018 [facility] Bernard G40.219 Local-rel 4:15p Clinic MD evangelista Perkinstc epi w cmplx part seiz, ntrct, w/o stat epi Office Visit 04/02/2018 [facility] Bernard G40.219 Local-rel 11:00a Clinic MD Gregorio symptc epi w cmplx part seiz, ntrct, w/o stat epi Office Visit 03/17/2018 [facility] Bernard G40.219 Local-rel 2:15p Clinic MD evangelista Perkinstc epi w cmplx part seiz, ntrct, w/o stat epi Office Visit 03/08/2018 [facility] Kala Kimbrough G40.219 Local-rel 3:59p Clinic MD naidutc epi w cmplx part seiz, ntrct, w/o stat epi Q85.00 Neurofibromatosis, unspecified Z87.820 Personal history of traumatic brain injury Office Visit 03/08/2018 8:53a [facility]ens[facility]ists Yasmani Levin R56.9 Unspecified MD convulsions G40.309 Gen idiopathic epilepsy, not intractable, w/o stat epi Office Visit 03/07/2018 [facility] Kala Kimbrough G40.219 Local-rel 3:58p Clinic MD naidutc epi w cmplx part seiz, ntrct, w/o stat epi Q85.00 Neurofibromatosis, unspecified Z87.820 Personal history of traumatic brain injury Office Visit 03/07/2018 8:52a Intensivists Yasmani Levin R56.9 Unspecified MD convulsions G40.309 Gen idiopathic epilepsy, not intractable, w/o stat epi Office Visit 03/06/2018 [facility] Bernard G40.219 Local-rel 3:54p Clinic MD evangelista Perkinstc epi w cmplx part seiz, ntrct, w/o stat epi Q85.00 Neurofibromatosis, unspecified Z87.820 Personal history of traumatic brain injury Office Visit 03/06/2018 8:46a Intensivists Yasmani Levin, R56.9 Unspecified convulsions G40.309 Gen idiopathic epilepsy, not intractable, w/o stat epi Plan of Treatment Future Appointment(s):12/09/2018 3:45 pm - Bernard Perkins MD at [id number]/07/2018 - ARMAND Wagner-CS22.010D Wedge comprsn fx first thor vert, subs for fx w routn healNew Xrays:CT Spine Thoracic W/O, Ordered: 10/07/18ollow up:After CTS22.030D Wedge comprsn fx third thor vert, subs for fx w routn heal
--- OUTSIDE RECORDS SUMMARY | 2018-10-18 03:18 | XMS REPORT | Continuity of Care Document ---
:1965 External Reference #:[id number] Author Name Nataliya Saravia Care Team Providers Name Role Phone Olivia Anguiano MD Primary Care Physician Unavailable Payers Type Date Identification Numbers Payment Provider Subscriber Policy Number: [id number] [employer] Insurance Carina Isaacs PayID: [id number] [address] [place] [address] Advance Directives Description No Information Available Problems [...] is a former smoker Smoking Status Reviewed: 09/21/18 Patient is a former smoker Allergies, Adverse Reactions, Alerts Date Description Reaction Status Severity Comments 03/17/2018 Valproic Acid Active Hives 03/17/2018 Phenobarbital Active 03/17/2018 Dilantin Active Medications Medication Date Status Form Strength Qnty SIG Indications Ordering Provider Zonisamide 09/07 Active Capsules 100mg 60cap 3 by Bernard Landy s mouth at MD Gregorio bedtime Somi Brasharath 08/05 Active 1unit Apply and S22.010A Daniel s wear kemal Thomas M.D. directed. Keppra 07/01 Active Tablets 1000mg 105ta 1 by Bernard bs mouth in MD Gregorio in the morning 1/2 at noon 1/2 at 6pm and 1 and 1/2 at bedtime Temazepam 06/14 Active Capsules 15mg 60cap 1-2 s tablets [...] mouth every day Mometasone Active Suspension 50mcg/Act [place] 1 Unknown Furoate /0000 To 2 Sprays [...] Available Vital Signs Date Vital Result Comment 09/21/2018 1:42pm Height 64.5 inches 5'4.50" Weight [...] H/L Range Note CBC Auto Diff 05/09/2018 [facility] White Blood 7.2 10^3/uL N 3.5-10.[address] [place] [address] [phone] Red Blood Count 3.99 10^6/uL Low 4.00-5.40 [...] Blood Cells % 0.2 Laboratory test 05/09/2018 [facility] Carbamazepine 9.3 g/mL N 4.0-12.0 finding [address] [facility] (Tegretol) [place] [address] [phone] Levetiracetam (Keppra) 22.4 g/mL 1 Laboratory test 03/28/2018 [facility] Levetiracetam 24.3 g/mL 2 finding 101 [facility] (Keppra) [place] [address] [phone] 1 REFERENCE VALUE 12.0 - 46.0 ADDITIONAL INFORMATION This test was developed and its performance characteristics determined by [facility] in a manner consistent with CLIA requirements. This test has not been cleared or approved by the U.S. Food and Drug Administration. Test Performed by: [facility] - [facility] [address] [place] [id number] 2 REFERENCE VALUE 12.0 - 46.0 ADDITIONAL INFORMATION This test was developed and its performance characteristics determined by [facility] in a manner consistent with CLIA requirements. This test has not been cleared or approved by the U.S. Food and Drug Administration. Test Performed by: [facility] - [address] [address] Procedures Date Code Description Status 05/13/2018 33033 EEG Recording Awake & Drowsy Completed 04/02/2018 01624 EEG Recording Awake & Drowsy Completed 03/17/2018 96396 EEG Recording Awake & Drowsy Completed 03/07/2018 78778 EEG Monitoring & Video Recording Completed 03/06/2018 60702 EEG Monitoring & Video Recording Completed 03/06/2018 23409 Electroencephalogram EEG Extended Monitoring Over 1 Hour Completed Encounters Type Date Location Provider Dx Diagnosis Office Visit 09/07/2018 [facility] Bernard Perkins, G40.219 Local-rel symptc 4:00p Clinic MD vinita hughes cmplx part seiz, ntrct, w/o stat epi Office Visit 08/05/2018 [facility] Jessica Garcia, S22.010A Wedge compression 3:30p PA-C fracture of first thoracic vertebra, init Office Visit 07/01/2018 [facility] Bernard Perkins, G40.219 Local-rel symptc 11:00a Clinic MD vinita hughes cmplx part seiz, ntrct, w/o stat epi Q85.00 Neurofibromatosis, unspecified Office Visit 05/28/2018 [facility] Bernard G40.219 Local-rel 3:45p Clinic MD Gregorio symptc epi w cmplx part seiz, ntrct, w/o stat epi 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 Office Visit 05/13/2018 [facility] Bernard G40.219 Local-rel 4:15p Clinic MD Gregorio symptc epi w cmplx part seiz, ntrct, w/o stat epi Office Visit 04/02/2018 [facility] Bernard G40.219 Local-rel 11:00a Clinic MD Gregorio symptc epi w cmplx part seiz, ntrct, w/o stat epi Office Visit 03/17/2018 [facility] Bernard G40.219 Local-rel 2:15p Clinic MD evangelista Perkinstc epi w cmplx part seiz, ntrct, w/o stat epi Office Visit 03/08/2018 [facility] Kala Kimbrough, G40.219 Local-rel 3:59p Clinic MD naidutc epi w cmplx part seiz, ntrct, w/o stat epi Q85.00 Neurofibromatosis, unspecified Z87.820 Personal history of traumatic brain injury Office Visit 03/08/2018 8:53a [facility] Yasmani Levin, R56.9 Unspecified MD convulsions G40.309 Gen idiopathic epilepsy, not intractable, w/o stat epi Office Visit 03/07/2018 [facility] Kala Kimbrough, G40.219 Local-rel 3:58p [facility] MD naidutc epi w cmplx part seiz, ntrct, w/o stat epi Q85.00 Neurofibromatosis, unspecified Z87.820 Personal history of traumatic brain injury Office Visit 03/07/2018 8:52a [facility] Yasmani Levin, R56.9 Unspecified MD convulsions G40.309 Gen idiopathic epilepsy, not intractable, w/o stat epi Office Visit 03/06/2018 [facility] Bernard G40.219 Local-rel 3:54p Clinic MD Gregorio symptc epi w cmplx part seiz, ntrct, w/o stat epi Q85.00 Neurofibromatosis, unspecified Z87.820 Personal history of traumatic brain injury Office Visit 03/06/2018 8:46a [facility] Yasmani Levin R56.9 Unspecified MD convulsions G40.309 Gen idiopathic epilepsy, not intractable, w/o stat epi Plan of Treatment Future Appointment(s):10/07/2018 3:45 pm - Jessica Garcia PA-C at [facility]12/09/2018 3:45 pm - Bernard Perkins MD at [facility]109/21/2018 - ARMAND Wagner-CS22.010D Wedge comprsn fx first zurdo orona, subs for ruthie joshi healFollow up:2 weeks
--- OUTSIDE RECORDS SUMMARY | 2018-10-18 03:18 | XMS REPORT | Continuity of Care Document ---
:1965 External Reference #:[id number] Author Name Shannan Brian O.D. Address [address] [place] [address] Care Team Providers Name Role Phone Olivia Anguiano MD Primary Care Physician Unavailable Payers Type Date Identification Numbers Payment Provider Subscriber Policy Number: [id number] [employer] Ppo/Pos/Epo/Nap Carina Ferny PayID: [id number] [address] [place] [address] Advance Directives Description No Information Available Problems Date Description Provider Status Onset: H/O Malignant melanoma Active Onset: 10/08/2018 Seizure Shannan Brian O.D. 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 Active Onset: 10/15/2018 Regular astigmatism Shannan Brian O.D. Active Onset: 10/15/2018 Myopia Shannan Brian O.D. Active Onset: 10/15/2018 Vitreous degeneration Shannan Brian O.D. 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 ETOH Use Denies alcohol use Recreational Drug Use Denies Drug Use Tobacco Use Start: Unknown End: Unknown Patient is a former smoker Smoking Status Reviewed: 10/15/18 Patient is a former smoker Allergies, Adverse Reactions, Alerts Date Description Reaction Status Severity Comments 10/08/2018 Valproic Acid Active 10/08/2018 Phenobarbital Active Medications Medication Date Status Form Strength Qnty SIG Indications Ordering Provider Temazepam // Active Capsules 15mg Take 1 To Unknown 0000 2 Capsules By Mouth AT Bedtime as Needed Hydrocodone-Savage / Active Tablets 5-325mg Take 1 To Unknown taminophen 0000 2 Tablets By Mouth Every 6 Hours Levetiracetam / Active Tablets 500mg Take 1 Unknown 0000 Tablet By Mouth Every Morning, Take 1 Tablet By Mouth In The Evening , Then Take 3 Tablets By Mouth AT Bedtime Zonisamide / Active Capsules 100mg Take 1 Unknown 0000 Capsule By Mouth Nightly For 2 Weeks, Then Take 2 Capsules By Mouth Nightly For 2 Weeks, Then Take 3 Capsules By Mouth Nightly Escitalopram / Active Tablets 10mg Take 1 Unknown Oxalate 0000 Tablet By Mouth Every Day Mometasone / Active Suspension 50mcg/Act [place] 1 Unknown Furoate 0000 To 2 Sprays In Each Nostril Every Day Carbamazepine / Active Tablets 200mg Take 1 Unknown 0000 Tablet By Mouth Every Morning, Take 1 Tablet By Mouth AT Noon, Take 1/2 Tablet By Mouth In The Evening, And Take 1 And 1/2 Tablets By Omeprazole / Active Capsules DR 20mg Unknown 0000 Immunizations Description No Information Available Vital Signs Description No Information Available Results Description No Information Available Procedures Date Code Description Status 01/16/2011 62838 New Patient Comprehensive Exam Completed Encounters Description No Information Available Plan of Treatment 10/15/2018 - Shannan Brian O.D.H43.813 Vitreous degeneration, bilateralComments:You have Vitreous Floaters. If you have any changed in your floaters or flashing lights, please contact this office.Follow up:6 WEEKS DFE + PHOTO OR SOONER IHABIUW55.32 Benign neoplasm of left choroidComments:You have a nevus in your left eye. This is similar to a mole on your skin. Typically this will not change, but I will monitor it.D31.31 Benign neoplasm of right choroidComments:You have a nevus in your right eye. This is similar to a mole on your skin. Typically this will not change, but I will monitor it.H52.13 Myopia, bilateralComments:You have Myopia, or near sightedness. I have given you a prescription for glasses.H52.223 Regular astigmatism, bilateralComments: Astigmatism is a common vision condition that happens when a person's cornea is not symmetrical. Dr. Brian has given you a prescription to correct for this.H52.4 PresbyopiaComments:Smoking can increase the risk of developing or worsening any eye related disease, as well as affect your overall health. If you are a smoker, we strongly recommend that you quit.If you are not a smoker, we strongly recommend that you do not start. You have presbyopia. This is when the lens in your eye loses the ability to change focus, and happens as we age. A pair of reading glasses will help you see up close.
--- NOTE | 2018-10-18 03:38 | ED ---
Upper Extremity Pain - HPI Summary HPI Summary: This patient is a 52 year old M presenting to [facility] with a chief complaint of right wrist pain and swelling after attempting to catch himself from falling while attempting to install a shelving unit prior to arrival. Pain is rated 5/ 10 upon triage. - History of Current Complaint Chief Complaint: EDExtremityUpper Stated Complaint: RIGHT WRIST INJURY Time Seen by Provider: 10/18/18 03:28 Hx Obtained From: Patient Mechanism Of Injury: Fall From A Standing Position Onset/Duration: Started Minutes Ago, Still Present Timing: Constant Severity Currently: Moderate Pain Location: Wrist - right Associated Signs & Symptoms: Positive: Swelling - Allergies/Home Medications Allergies/Adverse Reactions: Allergies Allergy/AdvReac Type Severity Reaction Status Date / Time divalproex sodium Allergy Rash Verified 10/18/18 03:08 [From Depakote] phenobarbital Allergy Unknown Verified 10/18/18 03:08 Reaction Details phenytoin [From Dilantin] Allergy Unknown Verified 10/18/18 03:08 Reaction Details Home Medications: Home Medications Escitalopram (NF) [Lexapro 10 mg (NF)] 10 mg PO BEDTIME 10/18/18 [History Confirmed 10/18/18] Zonisamide [Zonegran] 300 mg PO BEDTIME 10/18/18 [History Confirmed 10/18/18] carBAMazepine TAB(*) [Tegretol TAB(*)] 100 mg PO 1800 10/18/18 [History Confirmed 10/18/18] levETIRAcetam TAB* [Keppra TAB*] 1,000 mg PO QAM 10/18/18 [History Confirmed ] levETIRAcetam TAB* [Keppra TAB*] 1,500 mg PO BEDTIME 10/18/18 [History Confirmed 10/18/18] levETIRAcetam TAB* [Keppra TAB*] 500 mg PO SEE INSTRUCTIONS 10/18/18 [History Confirmed 10/18/18] PMH/Surg Hx/FS Hx/Imm Hx Endocrine/Hematology History: Denies: Hx Diabetes, Hx Thyroid Disease, Hx Anemia Cardiovascular History: Reports: Hx Hypertension - Takes meds "on and off" Denies: Hx Pacemaker/ICD Respiratory History: Denies: Hx Asthma, Hx Chronic Obstructive Pulmonary Disease (COPD) History: Denies: Hx Renal Disease Sensory History: Reports: Hx Contacts or Glasses Denies: Hx Hearing Aid Opthamlomology History: Reports: Hx Contacts or Glasses Neurological History: 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 MELANOMA BX - Immunization History Date of Tetanus Vaccine: unknown Infectious Disease History: No Infectious Disease History: Denies: Hx Hepatitis, Hx Human Immunodeficiency Virus (HIV), Traveled Outside the [place] in Last 30 Days - Family History Known Family History: Positive: Hypertension - Social History Alcohol Use: None Hx Substance Use: No Substance Use Type: Reports: None Smoking Status (MU): Former Smoker Review of Systems Negative: Fever Positive: Myalgia - right wrist, Edema - right wrist All Other Systems Reviewed And Are Negative: Yes Physical Exam - Summary Physical Exam Summary: Appearance: Well-appearing, Well-nourished, lying in bed comfortably Skin: Warm, dry, no obvious rash Eyes: sclera anicteric, no conjunctival pallor ENT: mucous membranes moist, pharynx appears normal Neck: Supple, nontender Respiratory: Clear to auscultation, no signs of respiratory distress Cardiovascular: Normal S1, S2. No murmurs. Normal distal pulses in tibial and radial bilaterally. Abdomen: Soft, nontender, normal active bowel sounds present Musculoskeletal: right wrist is swollen and mildly tender with normal ROM Neurological: A&Ox3, awake and alert, mentation is normal, speech is fluent and appropriate Psychiatric: affect is normal, does not appear anxious or depressed Triage Information Reviewed: Yes Vital Signs On Initial Exam: Initial Vitals Temp Pulse Resp BP Pulse Ox 96.8 F 56 16 106/59 97 10/18/18 03:04 10/18/18 03:04 10/18/18 03:04 10/18/18 03:04 10/18/18 03:04 Vital Signs Reviewed: Yes Diagnostics - Vital Signs Vital Signs Temp Pulse Resp BP Pulse Ox 10/18/18 03:04 96.8 F 56 16 106/59 97 - Laboratory Lab Statement: Any lab studies that have been ordered have been reviewed, and results considered in the medical decision making process. - Radiology R Wrist XR Radiology Interpretation Completed By: ED Physician - Negative for fracture. Course/Dx - Course Course Of Treatment: 52 year old M presenting to [facility] with a chief complaint of right wrist pain and swelling after attempting to catch himself from falling while attempting to install a shelving unit prior to arrival. XR of the right wrist is negative. Patient is informed of the results and is discharged. - Diagnoses Provider Diagnoses: Right wrist sprain Discharge - Sign-Out/Discharge Documenting (check all that apply): Patient Departure - discharge - Discharge Plan Condition: Good Disposition: HOME Patient Education Materials: Splint Care (ED), Wrist Sprain (ED) Referrals: Javy Donnelly MD [Medical Doctor] - 1 Week - Billing Disposition and Condition Condition: GOOD Disposition: Home - Attestation Statements Document Initiated by Kathy: Yes Documenting Scribe: Virginie Martinez Provider For Whom Kathy is Documenting (Include Credential): Tio Briones MD Scribe Attestation: Virginie Blair, domingaibed for Tio Briones MD on 10/20/18 at 1417. Scribe Documentation Reviewed: Yes Provider Attestation: The documentation as recorded by the Virginie viera accurately reflects the service I personally performed and the decisions made by meTio MD Status of Scribe Document: Viewed
[2018-10-18 04:13] VITALS: BP 123/69
--- NOTE | 2018-10-18 09:14 | PN ---
Progress Note - Progress Note Date of Service: 10/18/18 Note: Dr. Solano called PA, Trista Subramanian at 9:10am Called patient and spoke with Carina to make aware of fracture Patient was placed in velcro splint prior to discharge Discussed the importance to follow up with ortho and keep in splint until discharge.
== END 2018-10-18 04:11 | disposition home or self-care (01) ==
LOC: ED 02:58
DX: S52.501A Unspecified fracture of the lower end of right radius, initial encounter for closed fracture (principal); I10 Essential (primary) hypertension; Q85.00 Neurofibromatosis, unspecified; Z85.820 Personal history of malignant melanoma of skin; W19.XXXA Unspecified fall, initial encounter; Y93.89 Activity, other specified; Y92.9 Unspecified place or not applicable; Z87.891 Personal history of nicotine dependence
CPT/HCPCS: 99282

== ENCOUNTER 2019-09-08 16:50 | Emergency (ER) | payer OTHER ==
[2019-09-08 17:38] LABS: INR 1.15 (0.82-1.09)
--- OUTSIDE RECORDS SUMMARY | 2019-09-08 17:40 | XMS REPORT | Continuity of Care Document ---
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 Driver Medicine Problems Active Problems Provider Date Epilepsy characterized by intractable complex Bernard Perkins MD Onset: 2017 partial seizures Generalized epilepsy Onset: Social History Type Date Description Comments Sex Unknown ETOH Use Rarely consumes alcohol Tobacco Use Start: Unknown End: Patient is a former smoker Unknown Smoking Status Reviewed: 08/19/19 Patient is a former smoker Exercise Type/Frequency Exercises rarely Allergies, Adverse Reactions, Alerts Active Allergies Reaction Severity Comments Date Depakote Hives 03/17/2018 Phenobarbital 03/17/2018 Dilantin 03/17/2018 Medications Active Medications SIG Qnty Indications Ordering Date Provider Keppra 2 in am and 3 in 150tabs Bernard Perkins, 04/08/2019 500mg Tablets pm by mouth Carbamazepine 1 in am 1/2 in 120tabs Bernard Perkins, 03/24/2019 200mg pm and 2 and a Tablets half at bedtime by mouth Zonisamide 4 by mouth at 120caps Bernard Perkins, 09/07/2018 100mg Capsules bedtime Temazepam 1-2 tablets at 60caps Bernard Perkins, 04/02/2018 15mg Capsules bedtime mdd 2 mdd 2 mdd 2 Clonazepam Take 2 Tablets Unknown 1mg Tablets By Mouth AT Bedtime Omeprazole 1 by mouth every Unknown 40mg Capsules day Momtraciesone Furoate [place] 1 To 2 Unknown Sprays In Each 50mcg/Act Suspension Nostril Every Day Alisha Allergy 1 by mouth every Unknown 60mg day as needed Tablets Nicotine Transdermal use daily. Unknown System Step 2 14mg/24HR Patches 24HR Zantac 150 Maximum 1 by mouth twice Unknown Strength a day prn 150mg Tablets Lexapro 1 by mouth every Unknown 10mg Tablets day Benadryl Allergy 2 tabs @ onset Unknown 25mg of allergy issue Tablets Vitamin D High Potency 2 by mouth every Unknown day 1000Unit Capsules Melatonin 1 cap at bedtime Unknown 5mg Capsules History Medications Keppra 2 by mouth twice 120tabs Bernard Perkins MD 04/08/2019 - 500mg a day 04/08/2019 Tablets Medications Administered in Office Medication SIG Qnty Indications Ordering Provider Date Depomedrol 40MG GHULAM Bond 12/10/2018 Injection Immunizations Description No Information Available Vital Signs Date Vital Result Comment 08/19/2019 2:17pm Height 64.5 inches 5'4.50" Weight 144.38 lb Heart Rate 76 /min BP Systolic Sitting 148 mmHg BP Diastolic Sitting 96 mmHg Respiratory Rate 20 /min BMI (Body Mass Index) 24.4 kg/m2 04/08/2019 9:54am Height 64.5 inches 5'4.50" Weight 153.38 lb Heart Rate 68 /min BP Systolic 130 mmHg BP Diastolic 96 mmHg Respiratory Rate 20 /min BMI (Body Mass Index) 25.9 kg/m2 Results Test Acquired Facility Test Result H/L Range Note Date Laboratory 07/08/2019 [facility] Carbamazepine 11.6 Normal 4.0 -12.0 test finding [address] (Tegretol) g/[place] [address] [phone] Levetiracetam (Keppra) 29.2 g/mL 1 Zonisamide 13 g/mL 10-40 2 Laboratory test 04/08/2019 [facility] Carbamazepine <pending> finding [address] (Tegretol) [place] [address] [phone] Levetiracetam (Keppra) <pending> Zonisamide <pending> 1 REFERENCE VALUE 12.0 - 46.0 ADDITIONAL INFORMATION This test was developed and its performance characteristics determined by [facility] in a manner consistent with CLIA requirements. This test has not been cleared or approved by the U.S. Food and Drug Administration. Test Performed by: [facility] [place] [address] Lead Web Developer: Clay Leblanc M.D. Ph.D.; CLIA# [id number] 2 ADDITIONAL INFORMATION This test was developed and its performance characteristics determined by [facility] in a manner consistent with CLIA requirements. This test has not been cleared or approved by the U.S. Food and Drug Administration. Test Performed by: [facility] [place] [address] Lead Web Developer: Clay Leblanc M.D. Ph.D.; CLIA# [id number] Procedures Date Code Description Status 03/18/2019 04025 EEG Monitoring Computer Completed 03/17/2019 64629 EEG Monitoring Computer Completed 03/16/2019 73552 EEG Monitoring Computer Completed Medical Devices Description No Information Available Encounters Type Date Location Provider Dx Diagnosis Office Visit 04/08/2019 [facility] Bernard Perkins, G40.219 Local-rel 9:30a symptc epi w cmplx part seiz, ntrct, w/o stat epi Z79.899 [facility] Assessments Date Code Description Provider 08/19/2019 G40.219 Localization-related (focal) (partial) Bernard Perkins MD symptomatic epilepsy 04/08/2019 G40.219 Localization-related (focal) (partial) Bernard Perkins MD symptomatic epilepsy 04/08/2019 Z79.899 [facility] drug [facility] Bernard Perkins MD 03/18/2019 G40.219 Localization-related (focal) (partial) Bernard Perkins MD symptomatic epilepsy 03/17/2019 G40.219 Localization-related (focal) (partial) Bernard Perkins MD symptomatic epilepsy 03/16/2019 G40.219 Localization-related (focal) (partial) Bernard Perkins MD symptomatic epilepsy Plan of Treatment Future Appointment(s):11/18/2019 3:45 pm - Bernard Perkins MD at [facility]08/19/2019 - Bernard Perkins MDG40.219 Localization- related (focal) (partial) symptomatic epilepsy Functional Status Description No Information Available Mental Status Description No Information Available Referrals Description No Information Available
--- OUTSIDE RECORDS SUMMARY | 2019-09-08 17:40 | XMS REPORT | Continuity of Care Document ---
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 Medicine Problems Active Problems Provider Date Epilepsy [...] every Unknown 40mg Capsules day Momtraciesone Furoate [place] 1 To 2 Unknown Sprays In Each [...] Result H/L Range Note Date Laboratory 07/08/2019 [facility] Carbamazepine 11.6 Normal 4.0 -12.0 test finding [address] (Tegretol) g/[place] [address] [phone] Levetiracetam (Keppra) 29.2 g/mL 1 Zonisamide 13 g/mL 10-40 2 Laboratory test 04/08/2019 [facility] Carbamazepine <pending> finding [address] (Tegretol) [place] [address] [phone] Levetiracetam (Keppra) <pending> Zonisamide <pending> 1 REFERENCE VALUE 12.0 - 46.0 ADDITIONAL INFORMATION This test was developed and its performance characteristics determined by [facility] in a manner consistent with CLIA requirements. This test has not been cleared or approved by the U.S. Food and Drug Administration. Test Performed by: [facility] [place] [address] Medical Specialist: Clay Leblanc M.D. Ph.D.; CLIA# [id number] 2 ADDITIONAL INFORMATION This test was developed and its performance characteristics determined by [facility] in a manner consistent with CLIA requirements. This test has not been cleared or approved by the U.S. Food and Drug Administration. Test Performed by: [facility] [place] [address] Medical Specialist: Clay Leblanc M.D. Ph.D.; CLIA# [id number] Procedures Date Code Description Status 03/18/2019 19235 EEG Monitoring Computer Completed 03/17/2019 78031 EEG Monitoring Computer Completed 03/16/2019 70398 EEG Monitoring Computer Completed Medical Devices Description No Information Available Encounters Type Date Location Provider Dx Diagnosis Office Visit 08/19/2019 [facility] Bernard Perkins, G40.219 Local-rel 2:00[facility] MD samia talamantes w cmplx part seiz, ntrct, w/o stat epi Office Visit 04/08/2019 [facility] Bernard Perkins G40.219 Local-rel 9:30a MD samia talamantes w cmplx part seiz, ntrct, w/o stat epi 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 Assessments Date Code Description Provider 08/19/2019 G40.219 Localization-related (focal) (partial) Bernard Perkins MD symptomatic epilepsy 04/08/2019 G40.219 Localization-related (focal) (partial) Bernard Perkins MD symptomatic epilepsy 04/08/2019 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 Bernard Perkins MD 03/18/2019 G40.219 Localization-related (focal) (partial) Bernard Perkins MD symptomatic epilepsy 03/17/2019 G40.219 Localization-related (focal) (partial) Bernard Perkins MD symptomatic epilepsy 03/16/2019 G40.219 Localization-related (focal) (partial) Bernard Perkins MD symptomatic epilepsy Plan of Treatment Future Appointment(s):11/18/2019 3:45 pm - Bernard Perkins MD at [facility]08/19/2019 - Bernard Perkins MDG40.219 Localization- related (focal) (partial) symptomatic epilepsyComments:Seizures quiet - which is much better but he is somewhat depressed and will very slowly back down onthe keppra and hopefully the depression will improve at a dose where his seizures still remain controlled. Will go to [facility] for rehab medicine 2 in am and 2 and a half in pm for a month and then 1 and a half in am and 2and a half in pm. Other meds the same.Follow up:3 MONTHS Functional Status Description No Information Available Mental Status Description No Information Available Referrals Description No Information Available
[2019-09-08 17:42] LABS: ABS Lymphocytes 0.6 10^3/ul (1.0-4.8); ABS Monocytes 0.5 10^3/ul (0-0.8); ABS Neutrophils 6.7 10^3/ul (1.5-7.7); Eosinophil % 0.3 %; Hematocrit 37 % (42-52); Hemoglobin 13.3 g/dL (14.0-18.0); Lymphocyte % 8.2 %; Mean Corpuscular HGB Conc 36 g/dL (31-36); Mean Corpuscular Hemoglobin 34 pg (27-31); Mean Corpuscular Volume 94 fL (80-94); Mean Platelet Volume 7.7 fL (7.4-10.4); Platelet Count 135 10^3/uL (150-450); Red Blood Count 3.97 10^6 /uL (4.18-5.48); Red Cell Distribution Width 15 % (10-15); White Blood Count 7.9 10^3/uL (3.5-10.8)
[2019-09-08 17:44] LABS: Albumin 4.4 g/dL (3.2-5.2); Albumin/Globulin Ratio 1.5 (1-3); Calcium 9.5 mg/dL (8.6-10.3); EGFR African American 69.6 (>60); EGFR Non-African American 57.5 (>60); Globulin 2.9 g/dL (2-4); Potassium 3.7 mmol/L (3.5-5.0); Total Bilirubin 0.7 mg/dL (0.2-1.0); Total Protein 7.3 g/dL (6.4-8.9)
[2019-09-08 17:47] LABS: Troponin I 0.01 ng/mL (<0.03)
--- NOTE | 2019-09-08 19:45 | ED ---
Seizure - HPI Summary HPI Summary: 53 yo male presents to [facility] ED s/p seizure. He tells me that around 1500 today he was lying in bed and felt a seizure coming on. He proceeded to have a seizure and around 1520 woke up postictal on the floor next to his bed. He called his . was home by 1530 and noticed pt had urinated himself, which is not typical of him. Pt gradually improved and became more alert and was ambulating without assistance. He noticed that he had right rib pain and this concerned him about his heart - prompting their visit to the ED this evening. Currently feels well and only endorses mild right rib pain with deep breaths and movement. He denies headache, dizziness, vision changes, SOB, palpitations, abdominal pain, n/v, back pain. He currently follows with Neurology Dr. Perkins for long seizure history - and last had med adjustments around 08/18/19 to a lower dose of tegretol. - History Of Current Complaint Chief Complaint: EDSeizure Time Seen by Provider: 09/08/19 19:45 Hx Obtained From: Patient - Allergies/Home Medications Allergies/Adverse Reactions: Allergies Allergy/AdvReac Type Severity Reaction Status Date / Time divalproex sodium Allergy Rash Verified 10/18/18 03:08 [From Depakote] phenobarbital Allergy Unknown Verified 10/18/18 03:08 Reaction Details phenytoin [From Dilantin] Allergy Unknown Verified 10/18/18 03:08 Reaction Details Home Medications: Home Medications Zonisamide(NF) [Zonegran(NF)] 400 mg PO BEDTIME 09/08/19 [History Confirmed ] PMH/Surg Hx/FS Hx/Imm Hx Endocrine/Hematology History: Denies: Hx Diabetes, Hx Thyroid Disease, Hx Anemia Cardiovascular History: Reports: Hx Hypertension - Takes meds "on and off" Denies: Hx Pacemaker/ICD Respiratory History: Denies: Hx Asthma, Hx Chronic Obstructive Pulmonary Disease (COPD) History: Denies: Hx Renal Disease Musculoskeletal History: Denies: Hx Osteoporosis Sensory History: Reports: Hx Contacts or Glasses Denies: Hx Hearing Aid Opthamlomology History: Reports: Hx Contacts or Glasses Neurological History: 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 [facility] BX - Immunization History Date of Tetanus Vaccine: unknown Infectious Disease History: No Infectious Disease History: Denies: Hx Hepatitis, Hx Human Immunodeficiency Virus (HIV), Traveled Outside the [place] in Last 30 Days - Family History Known Family History: Positive: Hypertension - Social History Lives: With Family Alcohol Use: None Hx Substance Use: No Substance Use Type: Reports: None Smoking Status (MU): Former Smoker Review of Systems Constitutional: Negative Eyes: Negative ENT: Negative Cardiovascular: Negative Respiratory: Negative Gastrointestinal: Negative Genitourinary: Negative Musculoskeletal: Negative Skin: Negative Neurological: Negative Psychological: Normal All Other Systems Reviewed And Are Negative: No Physical Exam - Summary Physical Exam Summary: GENERAL: NAD. WDWN. No pain distress. SKIN: No rashes, sores, ulcers, masses, lesions. HEENT: Head: AT/NC. No raccoon eyes or battles sign. Eyes: PERRLA. EOM intact. Conjunctiva clear without inflammation or discharge. Ears: Hearing grossly normal. TMs intact, no bulging, erythema, or edema. No hemotympanum Nose: Nasal mucosa pink and moist. NTTP maxillary and frontal sinus. Throat: Posterior oropharynx without exudates, erythema, or tonsillar enlargement. Uvula midline. NECK: Supple. Nontender. FROM CHEST: CTAB. No r/r/w. No accessory muscle use. Breathing comfortably and in no distress. CV: RRR. Pulses intact. Brisk cap refill. ABDOMEN: Soft. NTTP. Bowel sounds present MSK: FROM in B/L UEs and LEs with symmetric strength. NEURO: A&Ox3. 3 word recall, remote, recent memory, ability to follow 2-step directions, and attention intact. CN: II: Peripheral ramires intact. Vision normal. III, IV, : EOMI. No nystagmus. PERRLA. V: Sensations intact and symmetric. Opens mouth and clenches teeth. VII: No facial asymmetry. Forehead wrinkles. Grins, shuts eyes, frowns, puffs cheeks. VIII: Hearing intact to finger rub. IX, X: Swallows and coughs. Uvula midline. XI: Shrugs shoulders. Turns head against resistance. XII: No tongue deviation [id number] are intact. Gait with normal base. Romberg: maintains balance, no pronator drift. Normal speech. No facial drooping. PSYCH: Age appropriate behavior. Vital Signs On Initial Exam: Initial Vitals Temp Pulse Resp BP Pulse Ox 99.2 F 73 14 126/67 99 09/08/19 16:58 09/08/19 16:58 09/08/19 16:58 09/08/19 16:58 09/08/19 16:58 Procedures - Sedation Patient Received Moderate/Deep Sedation with Procedure: No Diagnostics - Vital Signs Vital Signs Temp Pulse Resp BP Pulse Ox 09/08/19 18:42 99.0 F 82 16 141/92 98 09/08/19 16:58 99.2 F 73 14 126/67 99 - Laboratory Lab Results: Lab Results 09/08/19 09/08/19 09/08/19 Range/Units 17:14 17:14 17:14 WBC 7.9 (3.5-10.8) 10^3/uL RBC 3.97 L (4.18-5.48) 10^6 /uL Hgb 13.3 L (14.0-18.0) g/dL Hct 37 L (42-52) % MCV 94 (80-94) fL MCH 34 H (27-31) pg MCHC 36 (31-36) g/dL RDW 15 (10-15) % Plt Count 135 L (150-450) 10^3/uL MPV 7.7 (7.4-10.4) fL Neut % (Auto) 85.1 % Lymph % (Auto) 8.2 % Isabella % (Auto) 6.0 % Eos % (Auto) 0.3 % Baso % (Auto) 0.4 % Absolute Neuts (auto) 6.7 (1.5-7.7) 10^3/ul Absolute Lymphs (auto) 0.6 L (1.0-4.8) 10^3/ul Absolute Monos (auto) 0.5 (0-0.8) 10^3/ul Absolute Eos (auto) 0.0 (0-0.6) 10^3/ul Absolute Basos (auto) 0.0 (0-0.2) 10^3/ul Absolute Nucleated RBC 0.0 10^3/ul Nucleated RBC % 0.0 INR (Anticoag Therapy) 1.15 H (0.82-1.09) Sodium 136 (135-145) mmol/L Potassium 3.7 (3.5-5.0) mmol/L Chloride 102 (101-111) mmol/L Carbon Dioxide 27 (22-32) mmol/L Anion Gap 7 (2-11) mmol/L BUN 13 (6-24) mg/dL Creatinine 1.30 H (0.67-1.17) mg/dL Est GFR ( Amer) 69.6 (>60) Est GFR (Non-Af Amer) 57.5 (>60) BUN/Creatinine Ratio 10.0 (8-20) Glucose 114 H (70-100) mg/dL Calcium 9.5 (8.6-10.3) mg/dL Total Bilirubin 0.70 (0.2-1.0) mg/dL AST 14 (13-39) U/L ALT 10 (7-52) U/L Alkaline Phosphatase 109 H (34-104) U/L Troponin I 0.01 (<0.03) ng/mL Total Protein 7.3 (6.4-8.9) g/dL Albumin 4.4 (3.2-5.2) g/dL Globulin 2.9 (2-4) g/dL Albumin/Globulin Ratio 1.5 (1-3) Carbamazepine Pending Result Diagrams: 09/08/19 17:14 09/08/19 17:14 Lab Statement: Any lab studies that have been ordered have been reviewed, and results considered in the medical decision making process. - Radiology CXR Radiology Interpretation Completed By: ED Physician Summary of Radiographic Findings: NAD. Reviewed with Dr. Briones - poor inspiration and exam quality limiting study. - EKG 1 ST Segment: Normal Summary of EKG Findings: 79 bpm NSR. No STEMI as read by Dr. Acosta Course/Dx - Course Course Of Treatment: CXR, EKG, and labs as above. Creatinine noted to be slightly elevated - reviewed with Dr. Briones. Pt was given 1L NS in his ED stay. His tegretol levels are therapeutic. Discussed with pt and recommend f/u within [address] Perkins for continuing med adjustment and possible repeat labwork. Pt voiced understanding and agrees with the plan. - Diagnoses Differential Diagnosis/HQI/PQRI: Positive: Metabolic Disorder, Known Seizure Disorder Provider Diagnoses: Seizure Discharge ED - Sign-Out/Discharge Documenting (check all that apply): Patient Departure - Discharge Plan Condition: Stable Disposition: HOME Patient Education Materials: Epilepsy (ED) Referrals: Olivia Anguiano MD [Primary Care Provider] - Bernard Perkins MD [Medical Doctor] - As Soon As Possible Additional Instructions: If you develop a fever, shortness of breath, chest pain, new or worsening symptoms - please call your PCP or go to the ED immediately. Please follow up with Dr. Perkins within 1 week regarding your seizures. - Billing Disposition and Condition Condition: STABLE Disposition: Home
[2019-09-08 19:53] LABS: Carbamazepine 12.3 mcg/mL (4.0-12.0)
[2019-09-08] MEDS ORDERED: NS 0.9% 1000 ML** 1,000 ML IV ONE (20:08)
[2019-09-08 21:26] LABS: Urine Appearance Cloudy; Urine Bilirubin Negative (Negative); Urine Blood Negative (Negative); Urine Color Amber; Urine Glucose Negative (Negative); Urine Ketones Negative (Negative); Urine Nitrite Negative (Negative); Urine Protein Negative (Negative); Urine Urobilinogen Positive (Negative)
[2019-09-08 22:29] VITALS: BP 120/78
--- NOTE | 2019-09-09 07:58 | ED ---
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 Patient Communication/Plan: called and left vm about results. sent script for augmentin bid x5 days for potential aspiration pneumonia. told if develop sob or fever to return. Provider Diagnoses: Seizure
== END 2019-09-08 22:20 | disposition home or self-care (01) ==
LOC: ED 16:50
DX: G40.909 Epilepsy, unspecified, not intractable, without status epilepticus (principal); I10 Essential (primary) hypertension; Q85.00 Neurofibromatosis, unspecified; Z88.8 Allergy status to other drugs, medicaments and biological substances; Z87.891 Personal history of nicotine dependence
CPT/HCPCS: 36415; 71046; 80053; 80156; 80177; 81003; 84484; 85025; 85610; 93005; 96360; 99282